=== PATIENT | female | born 1950 | race Caucasian/White ===

== ENCOUNTER 2016-11-09 11:23 | Emergency (ER) | payer MEDICARE, OTHER ==
[~2016-11-09] VITALS: Ht 165.1 cm; Wt 73.5 kg
[~2016-11-09 11:23] MED LIST: ASPIRIN EC81 MG PO; CALCIUM600 MG PO; DESMOPRESSIN A0.1 MG PO; DIFLUCAN200 MG PO; ESTRADIOL1 MG PO; HYDROXYZINE PAM25 MG PO; KEFLEX500 MG PO; LEVOTHYROXINE50 MCG PO; MECLIZINE HCL25 MG PO; METFORMIN HCL500 MG PO; METOPROLOL TART25 MG PO; NITROSTAT0.4 MG SL; OMEPRAZOLE20 MG PO; ONDANSETRON HCL4 MG PO; OXYBUTYNIN CHLOR5 MG PO; SIMVASTATIN80 MG PO; TRIAMCINOLONE A15 GM TOP; VITAMIN D2000 UNI1 PO; VITAMIN D250000 UNIT PO; ZYPREXA ZYDIS10 MG PO; ZYPREXA ZYDIS20 MG PO; ZYPREXA10 MG PO; ZYPREXA20 MG PO
[2016-11-09] MEDS ORDERED: CIPRO500 MG PO (13:50)
--- NOTE | 2016-11-09 21:00 | EKG ---
[facility] [address] [facility] [place] [address] Signed Normal sinus rhythm Normal ECG When compared with ECG of 02-NOV-2015 15:27, No significant change was found Confirmed by TEJA PAYTON MD ([id number]) on 11/09/2016 8:59:59 PM Electronically Signed By: TEJA PAYTON MD 11/09/16 2100 PATIENT NAME: HUNTER ZARAGOZA Electrocardiogram DATE OF : 52 PHYSICIAN: TEJA PAYTON MD REPORT #: [id number] REPORT IS CONFIDENTIAL AND NOT TO BE RELEASED WITHOUT AUTHORIZATION
== END 2016-11-09 14:03 | disposition home or self-care (01) ==
LOC: ED 11:23
DX: N39.0 Urinary tract infection, site not specified (principal); I48.91 Unspecified atrial fibrillation; Z88.2 Allergy status to sulfonamides; Z91.011 Allergy to milk products; Z88.5 Allergy status to narcotic agent; Z90.710 Acquired absence of both cervix and uterus; Z79.899 Other long term (current) drug therapy; Z90.89 Acquired absence of other organs; Z79.82 Long term (current) use of aspirin
CPT/HCPCS: 80053; 81001; 84484; 85025; 87077; 87088; 87186; 93005; 93010; 96360; 99284; J7030

== ENCOUNTER 2019-09-24 11:36 | Emergency (ER) | payer MEDICARE, OTHER ==
[~2019-09-24] VITALS: Ht 154.9 cm; Wt 73.5 kg
--- OUTSIDE RECORDS SUMMARY | ~2019-09-24 | XMS | Clinical Summary ---
Demographics + + + | Address | [address] | | | [place] [address] | + + + | Home Phone | | + + + | Preferred Language | Unknown | + + + | Marital Status | | + + + | Worship Affiliation | Unknown | + + + | Race | Unknown | + + + | Ethnic Group | Unknown | + + + Author + + + | Author | [facility] | | | and [place] | + + + | Organization | [facility] | | | and [place] | + + + | Address | Unknown | + + + | Phone | Unavailable | + + + Support + + +---------+ + | Name | Relationship | Address | Phone | + + +---------+ + | Aure Christian | ECON | Unknown | | + + +---------+ + Care Team Providers + +------+ + | Care Ski Patrol Officer Name | Role | Phone | + +------+ + | Augustine Zhang DO | PCP | | + +------+ + Allergies + + + + + + | Active Allergy | Reactions | Severity | Noted | Comments | | | | | Date | | + + + + + + | Codeine | Hives | High | 10//20 | | | | | | 16 | | + + + + + + | Sulfa Antibiotics | Hives | High | 12/06/19 | | | | | | 16 | | + + + + + + Medications + + + +---------+------+------+-------+ | Medication | Sig | Dispensed | Refills | Star | End | Statu | | | | | | t | Date | s | | | | | | Date | | | + + + +---------+------+------+-------+ | Cholecalciferol | Take by mouth | | 0 | 10/2 | | Activ | | (VITAMIN D-3) 12270 | daily. | | | 06/30 | | e | | units CAPS | | | | 16 | | | + + + +---------+------+------+-------+ | simvastatin | Take 80 mg by mouth | | 0 | 10/2 | | Activ | | (ZOCOR) 80 mg tablet | nightly. | | | /20 | | e | | | | | | 16 | | | + + + +---------+------+------+-------+ | estradiol | Take 1 mg by mouth | | 0 | 10/2 | | Activ | | (ESTRACE) 1 mg | daily. | | | 5/20 | | e | | tablet | | | | 16 | | | + + + +---------+------+------+-------+ | pioglitazone | Take 15 mg by mouth | | 0 | 10/2 | | Activ | | (ACTOS) 15 mg tablet | daily. | | | 5/20 | | e | | | | | | 16 | | | + + + +---------+------+------+-------+ | metFORMIN | Take 500 mg by mouth | | 0 | 10/2 | | Activ | | (GLUCOPHAGE) 500 mg | 2 (two) times daily | | | 5/20 | | e | | tablet | with meals. | | | 16 | | | + + + +---------+------+------+-------+ | aspirin 81 MG | Take 81 mg by mouth | | 0 | 10/2 | | Activ | | tablet | daily. | | | /20 | | e | | | | | | 16 | | | + + + +---------+------+------+-------+ | desmopressin | by Nasal route 2 | | 0 | 10/2 | | Activ | | (STIMATE) 150 | (two) times daily. | | | 20 | | e | | mcg/nasal spray SOLN | | | | 16 | | | + + + +---------+------+------+-------+ | OLANZapine | Take 30 mg by mouth | | 0 | 10/2 | | Activ | | (ZYPREXA) 10 MG | nightly. | | | /20 | | e | | tablet | | | | 16 | | | + + + +---------+------+------+-------+ | lisinopril | TAKE ONE TABLET BY | 90 | 2 | 10/12 | | Activ | | (PRINIVIL, ZESTRIL) | MOUTH EVERY DAY | tablet | | 03/02 | | e | | 5 mg tablet | | | | 17 | | | + + + +---------+------+------+-------+ | MANUAL SELECTION | Take 100 mg of | | 0 | / | | Activ | | NEEDED - | amoxicillin by mouth | | | 5/20 | | e | | Levothyroxine Sodium | daily. | | | 16 | | | | 100 MCG CAPS | | | | | | | + + + +---------+------+------+-------+ Active Problems + + + | Problem | Noted Date | + + + | Diabetes mellitus type 2, uncontrolled | 12/06/2015 | + + + | Hypertension, benign | 12/06/2015 | + + + Family History + + +------+ + | Medical History | Relation | Name | Comments | + + +------+ + | Cancer | Brother | | | + + +------+ + | Diabetes, NIDDM | Brother | | | + + +------+ + | Diabetes, NIDDM | Father | | | + + +------+ + | Heart disease | Father | | | + + +------+ + | Heart disease | Mother | | | + + +------+ + + +------+ + + | Relation | Name | Status | Comments | + +------+ + + | Brother | | | | + +------+ + + | Brother | | | | + +------+ + + | Father | | | CHF | | | | (Age | | | | | 69) | | + +------+ + + | Father | | | | + +------+ + + | Mother | | Alive | | + +------+ + + | Mother | | | | + +------+ + + Social History + +-------+ +--------+------+ | Tobacco Use | Types | Packs/Day | Years | Date | | | | | Used | | + +-------+ +--------+------+ | Former Smoker | | | | | + +-------+ +--------+------+ + + + | Sex Assigned at | Date Recorded | | | | + + + | Not on file | | + + + Last Filed Vital Signs + + + + + | Vital Sign | Reading | Time Taken | Comments | + + + + + | Blood Pressure | 116/64 | 01/03/2016 9:39 AM | | | | | PST | | + + + + + | Pulse | 79 | 01/03/2016 9:39 AM | | | | | PST | | + + + + + | Temperature | - | - | | + + + + + | Respiratory Rate | 16 | 01/03/2016 9:39 AM | | | | | PST | | + + + + + | Oxygen Saturation | - | - | | + + + + + | Inhaled Oxygen | - | - | | | Concentration | | | | + + + + + | Weight | 74 kg (163 lb 3.2 | 01/03/2016 9:39 AM | | | | oz) | PST | | + + + + + | Height | 154.9 cm (5' 1") | 01/03/2016 9:39 AM | | | | | PST | | + + + + + | Body Mass Index | 30.84 | 01/03/2016 9:39 AM | | | | | PST | | + + + + + Plan of Treatment + + +-------+ + | Health Maintenance | Due Date | Last | Comments | | | | Done | | + + +-------+ + | Vaccine: | | | | | Dtap/Tdap/Td (1 - | 1 | | | | Tdap) | | | | + + +-------+ + | Vaccine: Zoster (1 | | | | | of 2) | 2 | | | + + +-------+ + | Breast Cancer | | | | | Screening | 7 | | | + + +-------+ + | Vaccine: | | | | | Pneumococcal 65+ (1 | 7 | | | | of 1 - PPSV23) | | | | + + +-------+ + | Vaccine: Influenza | | | | | (#1) | 0 | | | + + +-------+ + Results Not on filefrom Last 3 Months
--- OUTSIDE RECORDS SUMMARY | ~2019-09-24 | XMS | Encounter Summary ---
Demographics + + + | Address | [address] | | | [place] [address] | + + + | Home Phone | | + + + | Preferred Language | Unknown | + + + | Marital Status | | + + + | Jew Affiliation | Unknown | + + + | Race | Unknown | + + + | Ethnic Group | Unknown | + + + Author + + + | Author | [facility] | | | and [place] | + + + | Organization | [facility] | | | [...] Team Providers + +------+ + | Care Braille Transcriber Name | Role | Phone | + [...] [place] | | | | | [place] | [address] | | | | | [address] | | | | | | [phone] | | | +--------+ + + + [...]
--- OUTSIDE RECORDS SUMMARY | ~2019-09-24 | XMS | Encounter Summary ---
Demographics + + + | Address | [address] | | | [place] [address] | + + + | Home Phone | | + + + | Preferred Language | Unknown | + + + | Marital Status | | + + + | Mormon Affiliation | Unknown | + + + | Race | Unknown | + + + | Ethnic Group | Unknown | + + + Author + + + | Author | [facility] | | | and [place] | + + + | Organization | [facility] | | | [...] Team Providers + +------+ + | Care Grounds Worker Name | Role | Phone | + [...] | | | | [place] | [phone] | | | | | [phone] | | | | | | [phone] | | | +--------+ + + + [...]
[~2019-09-24 11:36] MED LIST changes: +CIPRO500 MG PO
[2019-09-24] MEDS ORDERED: NAPROSYN500 MG PO (13:03)
[2019-09-24] MEDS ORDERED: LIDODERM1 EACH TOP (13:03)
--- NOTE | 2019-09-24 15:42 | EKG ---
[facility] [address] [facility] [place], [place] [address] Signed Normal sinus rhythm Normal ECG When compared with ECG of 13-JUN-2018 21:21, No significant change was found Confirmed by TEJA PAYTON MD ([id number]) on 09/24/2019 3:42:08 PM Electronically Signed By: TEJA PAYTON MD 09/24/19 1542 PATIENT NAME: HUNTER ZARAGOZA Electrocardiogram DATE OF : 52 PHYSICIAN: TEJA PAYTON MD REPORT #: [id number] REPORT IS CONFIDENTIAL AND NOT TO BE RELEASED WITHOUT AUTHORIZATION
== END 2019-09-24 13:18 | disposition home or self-care (01) ==
LOC: ED 11:36
DX: M94.0 Chondrocostal junction syndrome [Tietze] (principal); E11.9 Type 2 diabetes mellitus without complications; F31.9 Bipolar disorder, unspecified; I48.91 Unspecified atrial fibrillation; Z88.8 Allergy status to other drugs, medicaments and biological substances; Z88.2 Allergy status to sulfonamides; Z88.5 Allergy status to narcotic agent; Z91.011 Allergy to milk products; Z79.899 Other long term (current) drug therapy; Z79.84 Long term (current) use of oral hypoglycemic drugs
CPT/HCPCS: 71045; 80053; 84484; 85025; 93005; 93010; 96374; 99285-25; J1885

== ENCOUNTER 2019-11-06 09:59 | Inpatient (IN) | payer MEDICARE, OTHER ==
[~2019-11-06] VITALS: Ht 154.9 cm; Wt 73.5 kg
--- OUTSIDE RECORDS SUMMARY | ~2019-11-06 | XMS | Encounter Summary ---
Demographics + + + | Address | [address] | | | [place] [address] | + + + | Home Phone | | + + + | Preferred Language | Unknown | + + + | Marital Status | | + + + | Baptist Affiliation | Unknown | + + + | Race | White | + + + | Ethnic Group | Not or | + + + Author + + + | Author | [facility] | | | and [place] | + + + | Organization | [facility] | | | and [place] | + + + | Address | Unknown | + + + | Phone | Unavailable | + + + Support + + +---------+ + | Name | Relationship | Address | Phone | + + +---------+ + | Aure Gonzales | ECON | Unknown | | + + +---------+ + Care Team Providers + +------+ + | Care Comic Writer Name | Role | Phone | + +------+ + | Augustine Zhang DO | PCP | | + +------+ + Encounter Details +--------+ + + + + | Date | Type | Department | Care Team | Description | +--------+ + + + + | 12/05/ | Orders Only | [facility] | Conversion | | | 2016 | | CONVERSION DEP 888 | Transaction, | | | | | [facility] | Provider Unknown | | | | | [place] | [phone] | | | | | [address] | | | | | | [phone] | | | +--------+ + + + + Social History + +-------+ +--------+------+ | Tobacco Use | Types | Packs/Day | Years | Date | | | | | Used | | + +-------+ +--------+------+ | Never Assessed | | | | | + +-------+ +--------+------+ + + + | Sex Assigned at | Date Recorded | | | | + + + | Not on file | | + + + documented as of this encounter Plan of Treatment Not on filedocumented as of this encounter Visit Diagnoses Not on filedocumented in this encounter"
--- OUTSIDE RECORDS SUMMARY | ~2019-11-06 | XMS | Clinical Summary ---
Demographics + + + | Address | [address] | | | [place] [address] | + + + | Home Phone | | + + + | Preferred Language | Unknown | + + + | Marital Status | | + + + | Bahai Affiliation | Unknown | + + + | Race | White | + + + | Ethnic Group | Not or | + + + Author + + + | Author | [facility] | | | and [place] | + + + | Organization | [facility] | | | [...] Team Providers + +------+ + | Care Network Engineer Name | Role | Phone | + +------+ + | Augustine Zhang DO | PCP | | + +------+ + Allergies + + + + + + | Active Allergy | Reactions | Severity | Noted | Comments | | | | | Date | | + + + + + + | Codeine | Hives | High | 12/05/ | | | | | | 16 | | + + + + + + | Sulfa Antibiotics | Hives | High | 12/05/ | | | | | | 16 [...] | | Activ | | (VITAMIN D-3) 54590 | daily. | | | /20 | | e | | units CAPS | | | | 16 | | | + + + +---------+------+------+-------+ | simvastatin | Take 80 mg by mouth | | 0 | 10/2 | | Activ | | (ZOCOR) 80 mg tablet | nightly. | | | 5/20 | | e [...] | tablet | daily. | | | 5/20 | | e | | | | | | 16 | | | + + + +---------+------+------+-------+ | desmopressin | by Nasal route 2 | | 0 | 10/2 | | Activ | | (STIMATE) 150 | (two) times daily. | | | 5/20 | | e | | mcg/nasal spray SOLN | | | | 16 | | | + + + +---------+------+------+-------+ | OLANZapine | Take 30 mg by mouth | | 0 | 10/2 | | Activ | | (ZYPREXA) 10 MG | nightly. | | | 5/20 | | e | | tablet | | | | 16 | | | + + + +---------+------+------+-------+ | lisinopril | TAKE ONE TABLET BY | 90 | 2 | 10/12 | | Activ | | (PRINIVIL, ZESTRIL) | MOUTH EVERY DAY | tablet | | 20 | | e | | 5 mg tablet | | | | 17 | | | + + + +---------+------+------+-------+ | MANUAL SELECTION | Take 100 mg of | | 0 | 10/2 | | Activ | | NEEDED - [...]
--- OUTSIDE RECORDS SUMMARY | ~2019-11-06 | XMS | Encounter Summary ---
Demographics + + + | Address | [address] | | | [place] [address] | + + + | Home Phone | | + + + | Preferred Language | Unknown | + + + | Marital Status | | + + + | Episcopal Affiliation | Unknown | + + + | Race | White | + + + | Ethnic Group | Not or | + + + Author + + + | Author | [facility] | | | and [place] | + + + | Organization | [facility] | | | and [place] | + [...] Team Providers + +------+ + | Care Inside Sales Trainer Name | Role | Phone | + +------+ + | Augustine Zhang DO | PCP | | + +------+ + Encounter Details +--------+ + + + + | Date | Type | Department | Care Team | Description | +--------+ + + + + | 10/22/ | Orders Only | [facility] | Tari Caballero, | | | 2016 | | CARDIOLOGY [place] | [address] | | | | | [address] | [place] | | | | | [place], [place] | [address] | | | | | [address] | | | | | | [phone] | | | +--------+ + + + [...]
--- OUTSIDE RECORDS SUMMARY | ~2019-11-06 | XMS | Encounter Summary ---
Demographics + + + | Address | [address] | | | [place] [address] | + + + | Home Phone | | + + + | Preferred Language | Unknown | + + + | Marital Status | | + + + | Pentecostal Affiliation | Unknown | + + + | Race | White | + + + | Ethnic Group | Not or | + + + Author + + + | Author | [facility] | | | and [place] | + + + | Organization | [facility] | | | [...] Team Providers + +------+ + | Care Medical Insurance Clerk Name | Role | Phone | + +------+ + | Augustine Zhang DO | PCP | | + +------+ + Encounter Details +--------+ + + + + | Date | Type | Department | Care Team | Description | +--------+ + + + + | 10/22/ | Orders Only | [facility] | Tari Caballero, | | | 2016 | | CARDIOLOGY [place] | [address] | | | | | [address] | [place] | | | | | [place], [place] | [address] | | | | | [address] | | | | | | [phone] | | | +--------+ + + + [...]
--- OUTSIDE RECORDS SUMMARY | ~2019-11-06 | XMS | Encounter Summary ---
Demographics + + + | Address | [address] | | | [place] [address] | + + + | Home Phone | | + + + | Preferred Language | Unknown | + + + | Marital Status | | + + + | Sikh Affiliation | Unknown | + + + | Race | White | + + + | Ethnic Group | Not or | + + + Author + + + | Author | [facility] | | | and [place] | + + + | Organization | [facility] | | | and [...] Team Providers + +------+ + | Care Structurer Name | Role | Phone | + [...] | | | | [place] | [phone] | | | | | [phone] | | | | | | [phone] | | | +--------+ + + + [...]
--- OUTSIDE RECORDS SUMMARY | ~2019-11-06 | XMS | Clinical Summary ---
Demographics + + + | Address | [address] | | | [place] [address] | + + + | Home Phone | | + + + | Preferred Language | Unknown | + + + | Marital Status | | + + + | Mu-Ism Affiliation | Unknown | + + + | Race | White | + + + | Ethnic Group | Not or | + + + Author + + + | Author | [facility] | | | and [place] | + + + | Organization | [facility] | | [...] Team Providers + +------+ + | Care Conduit Helper Name | Role | Phone | + [...] | | Activ | | (VITAMIN D-3) 21549 | daily. | | | /20 | [...]
[~2019-11-06 09:59] MED LIST changes: +LIDODERM1 EACH TOP; +NAPROSYN500 MG PO; -ONDANSETRON HCL4 MG PO; +PRAVACHOL40 MG PO; -SIMVASTATIN80 MG PO; +VITAMIN D350 MC3 PO
[2019-11-06] MEDS ORDERED: TRULICITY1.5 MG/0.5 SUB-Q (11:10)
--- NOTE | 2019-11-06 15:12 | NUR ---
COVID SAMPLE OBTAINED, SENT TO [facility] , NO COMPLICATIONS
--- NOTE | 2019-11-06 15:21 | NUR ---
Arrives from ED via cart with KELLY Jerome. Ambulates from cart to bed. Assessment completed. States pain 8/10 in abdomen. States she is having diarrhea stools. Vital signs obtained. Call light in reach, bed rails up X2.
[2019-11-06] MEDS ORDERED: TRIFLURIDINE7.5 ML OS (17:29)
[2019-11-06] MEDS ORDERED: VENTOLIN HFA18 GM INH (17:30)
[2019-11-06] MEDS ORDERED: SYNTHROID75 MCG PO (17:31)
[2019-11-06] MEDS ORDERED: JANUVIA100 MG PO (17:32)
[2019-11-06] MEDS ORDERED: ZESTRIL5 MG PO (17:33)
[2019-11-06] MEDS ORDERED: MYRBETRIQ50 MG PO (17:34)
--- NOTE | 2019-11-06 17:43 | NUR ---
Patient admitted from ED this afternoon. IV fluids infusing. Continues with diarrhea since admission with periods of incontinence. No nausea or vomiting noted. IV site rotated per patient request to decrease IV pump alarms. Up ad garcia, independent in room.
[2019-11-06] MEDS ORDERED: METFORMIN HCL500 M3 PO (17:57)
[2019-11-06] MEDS ORDERED: VITAMIN C500 M1 PO (17:58)
[2019-11-06] MEDS ORDERED: MULTI VITAMIN1 EACH PO (17:58)
[2019-11-06] MEDS ORDERED: ONDANSETRON HCL4 MG PO (17:58)
[2019-11-06] MEDS ORDERED: IRON325 M1 PO (17:59)
--- NOTE | 2019-11-06 17:59 | NUR ---
MED REC COMPLETE
--- NOTE | 2019-11-06 19:23 | NUR ---
SHIFT REPORT RECEIVED FROM JESSICA MENDOZA. PT RESTING IN BED, WATCHING TV. PT DENIES PAIN. IV FLUIDS INFUSING PER ORDER. NO NEEDS AT THIS TIME. CALL LIGHT IN REACH.
--- NOTE | 2019-11-06 20:36 | NUR ---
SCHEDULED MED PROVIDED. NO OTHER NEEDS. CALL LIGHT IN REACH.
--- NOTE | 2019-11-06 21:10 | NUR ---
SUPERVISOR SLITTING AND SHIPPING ROUNDING NOTE. PT UTILIZES CALL LIGHT. STANDING AT BEDSIDE, INQUIRES ABOUT UNPLUGGING IV POLE TO GO TO THE BATHROOM. PT PROVIDED ASSITANCE. DENIES FURTHER NEEDS AT THIS TIME. PT AGREES TO CALL WHEN SHE IS FINISHED IN THE BATHROOM. DENIES QUESTIONS OR CONCERNS. WHITE BOARD UPDATED.
--- NOTE | 2019-11-06 21:15 | NUR ---
TOOK VITALS AND I&Os DONE, FRESH ICE WATER GIVEN, CALL LIGHT IN PLACE, HELPED PT ADJ HOB, NO FURTHER NEEDS AT THIS TIME, RN WILL BE IN SHORTY FOR PM MEDS
--- NOTE | 2019-11-06 22:07 | NUR ---
ASSESSMENT COMPLETED. SCHEDULED MEDS PROVIDED. GCS 15, A&O X4. IV WNL, CDI, FLUSHED WELL. LUNGS CLEAR. ABD SOFT, TENDER ON LEFT SIDE, PT DENIES DISTENTION. PT DENIES PAIN AT THIS TIME. CMS INTACT X4 EXTREMITIES. NO EDEMA NOTED. BOWEL TONES ACTIVE. NO CBG NEEDED. HEART TONES REGULAR. NO OTHER NEEDS AT THIS TIME. CALL LIGHT IN REACH.
--- NOTE | 2019-11-06 23:45 | NUR ---
SBA PT TO THE TOILET, HELPED MOVE IV POLE, PT IS BK TO BED AT THIS TIME, CALL LIGHT IN REACH, NO FURTHER REQUEST AT THIS TIME
--- NOTE | 2019-11-07 00:01 | NUR ---
PT RESTING IN BED, EYES CLOSED. RR EVEN, UNLABORED. IV FLUIDS AND MED INFUSING PER ORDER. CALL LIGHT IN REACH.
--- NOTE | 2019-11-07 01:25 | NUR ---
CALL LIGHT ANSWERED. PATIENT NEEDS HELP UNTANGLED IV TUBING AND IV PLUG CORD. PATIENT JUST GOT BACK FROM BATHROOM. V/S AND I&O TAKEN AND RECORDED. PRIMARY RN WAS IN THE ROOM. WARM BLANKET PROVIDED.
--- NOTE | 2019-11-07 01:34 | NUR ---
VS AND I&O [facility]. SCHEDULED MEDS AND NEW BAG IV FLUID PROVIDED. WARM BLANKET PROVIDED BY [facility]. NO OTHER NEEDS. CALL LIGHT IN REACH.
--- NOTE | 2019-11-07 03:18 | NUR ---
PT STATES SHE HAS 7/10 LLQ PAIN, PRN PAIN MED PROVIDED. ASSESSMENT COMPLETED. GCS 15, A&O X4. LUNGS CLEAR. HEART TONES REGULAR. ABD SOFT, TENDER IN LLQ, BOWEL TONES ACTIVE. PT DENIES ABD BEING DISTENDED. CMS INTACT. NO EDEMA NOTED. PT DENIES NAUSEA. IV WNL, IV FLUIDS INFUSING PER ORDER. NO OTHER NEEDS AT THIS TIME. CALL LIGHT IN REACH.
--- NOTE | 2019-11-07 06:13 | NUR ---
VS AND I&O COMPLETED. SCHEDULED MED PROVIDED. PT DENIES PAIN. NO OTHER NEEDS AT THIS TIME. CALL LIGHT IN REACH.
--- NOTE | 2019-11-07 06:26 | NUR ---
PT SLEPT WELL LAST NIGHT. ABD PAIN MANAGED WITH PRN MEDS. PT TOLERATED IV AND IV FLUIDS WELL. IV WNL. CBG 139, NO COVERAGE REQUIRED. VSS, UOS. PT TOLERATED CLEAR LIQUID DIET WELL.
--- NOTE | 2019-11-07 07:35 | NUR ---
REPORT RECIEVED FROM LOAD MANAGER KELLY KAUFMAN.
--- NOTE | 2019-11-07 08:41 | NUR ---
MORNING ASSESSMENT DONE. IV ABX INFUSING. PATIENT IS SLEEPY, RATES PAIN 6/10 WHEN AWAKE AND THEN IMMEDIATELY FALLS ASLEEP. DR. KO IN TO SEE PATIENT EARLIER THIS MORNING, PATIENT TO HAVE STOOL LABS, START P.O. PROTONIX. PATIENT IS TOLERATING CLEAR LIQUID DIET WELL.
--- NOTE | 2019-11-07 11:11 | NUR ---
PATIENT IS RESTING IN BED, IV CEFAPIME INFUSING.
--- NOTE | 2019-11-07 13:12 | NUR ---
PATIENT UP TO BATHROOM TO VOID/BM, LOOSE STOOL SENT TO LAB. PATIENT LINENS FRESHENED. PATIENT REFUSED TO SIT UP TO CHAIR AND WENT BACK TO BED. PATIENT DENIES PAIN, OR NAUSEA, IS TOLERATING A FULL LIQUID DIET WELL.
--- NOTE | 2019-11-07 14:22 | NUR ---
PATIENT PLANNING TO HAVE A SHOWER THIS AFTERNOON, DENIES OTHER NEEDS.
--- NOTE | 2019-11-07 15:15 | PATH ---
[facility] [address] [facility] [place], [place] [address] Signed ORDERING PHYSICIAN: Terri Neely MD PATIENT NAME: HUNETR ZARAGOZA GENDER: [place]ley : 1950 SPECIMEN(S): MOLECULAR PATHOLOGY RESULTS: SARS-CoV-2 Not Detected ADDITIONAL NOTES.: The Seco Fusion SARS-CoV-2 Assay is a multiplex real-time PCR (RT-PCR) in vitro diagnostic test intended for the qualitative detection of RNA from SARS-CoV-2 from individuals who meet COVID-19 clinical and/or epidemiological criteria. In general, SARS-CoV-2 RNA can be detected during the acute phase of infection. Positive results indicate the presence of SARS-CoV-2 RNA. Clinical correlation with patient history and other diagnostic information is necessary to determine patient infection status. Positive results do not rule out bacterial infection or co-infection with other viruses. Negative results do not preclude SARS-CoV-2 infection and should not be used as the sole basis for patient management decisions. Negative results must be combined with other clinical observations, patient history, and epidemiological information. The Seco Fusion SARS-CoV-2 Assay is not yet approved or cleared by the [place] FDA. When there are no FDA-approved or cleared tests available, and other criteria are met, FDA can make tests available under an emergency access mechanism called an Emergency Use Authorization (EUA). The EUA for this test is supported by the [employer] of Health and Human Service's (HHS's) declaration that circumstances exist to justify the emergency use of in vitro diagnostics for the detection and/or diagnosis of the virus that causes COVID-19. This EUA will remain in effect for the duration of the COVID-19 declaration justifying emergency of IVDs, unless it is terminated or revoked by FDA, after which the test may no longer be used. The Seco Fusion SARS-CoV-2 Assay is for use only under EUA in US laboratories certified under the Clinical Laboratory Improvement Amendments of 1988 (CLIA) to perform high complexity tests. [facility] is certified under CLIA to perform high complexity PATIENT NAME: HUNTER ZARAGOZA PATHOLOGY DATE OF : 52 REPORT #: [id number] PHYSICIAN: LEI PATHOLOGY PCP: JEANIE HUERTA MD REPORT IS CONFIDENTIAL AND NOT TO BE RELEASED WITHOUT AUTHORIZATION [address] [address] Signed clinical laboratory testing. PERFORMING LABORATORY.: Molecular testing was performed by [facility] [address] [place] [id number] (Christmas Tree Grader: Luis James D.O.; CLIA#: [id number]) Diagnostician: System Interface Pathologist Electronically Signed 11/07/2019 Copies: ~ PATIENT NAME: HUNTER ZARAGOZA PATHOLOGY DATE OF : 52 REPORT #: [id number] PHYSICIAN: LEI BRANHAM PCP: JEANIE HUERTA MD REPORT IS CONFIDENTIAL AND NOT TO BE RELEASED WITHOUT AUTHORIZATION
--- NOTE | 2019-11-07 15:49 | NUR ---
PATIENT RESTING IN BED AFTER SHOWER, IVF/ABX RESUMED. PATIENT IS TOLERATING FULL LIQUID WELL, NO NAUSEA OR PAIN AT THIS TIME.
--- NOTE | 2019-11-07 17:09 | NUR ---
PATIENT HAS DONE WELL WITH ADVANCING HER DIET TODAY, AD KAMRON FOR THE MOST PART AND RESTING IN BED. STOOL LABS ARE PENDING. PATIENT RATES PAIN 4-5/10, AFFECT DOES NOT MATCH NUMBER RATING. 4-5/10 ON THE FACES SCALE, 7-8/10 PER PATIENT.
--- NOTE | 2019-11-07 18:44 | NUR ---
PATIENT RESTING IN BED, ENDORSES SEVERAL EPISODES OF LOOSE STOOL TODAY, THESE WERE ADDED TO I/O
--- NOTE | 2019-11-07 21:00 | NUR ---
PATIENT TOOK ALL PM MEDS, NOT WANTING ANYTHINNG FOR ANY DISCOMFORT. CALL LIGHT IN REACH. NEW ICE WATER GIVE. PATIENT VOIDING WELL.
--- NOTE | 2019-11-07 21:54 | NUR ---
PATIENT RESTING QUIETLY ON HER LEFT SIDE, EYES CLOSED, RESPIRATIONS REGULAR AND EVEN, CALL LIGHT IN REACH.
--- NOTE | 2019-11-08 00:07 | NUR ---
PATIENT JUST GOT BACK TO THE BED FROM THE BAHROOM WITH 1PSBA. VOIDED 800MLS AND HAD A MEDIUM AMOUNT OF DIARRHEA. GOING BACK TO SLEEP CAN CALL LIGHT IN REACH.
--- NOTE | 2019-11-08 02:13 | NUR ---
PATIENT UP TO VOID 1PSBA AND BACK TO BED, CALL LIGHT IN REACH AND NEW ICEWATER GIVEN. NO C/O PAIN.
--- NOTE | 2019-11-08 05:36 | NUR ---
PATIENT HAS SLEPT, WHEN SHE HAS NOT BEEN UP TO THE BATHROOM TO PEE OR HAVE DIARRHEA OR BOTH. PATIENT IS VOIDING VERY WELL. HAS NOTHING FOR PAIN, IV INFUSING AND WNL. CALL LIGHT IN REACH. PATIENT HAS BEEN PLEASANT AND HAS CALLED APPROPRIATELY. BOWEL TONES HYPO ACTIVE AND AM MEDS HAVE BEEN GIVEN.
--- NOTE | 2019-11-08 07:05 | NUR ---
Entered pt room for bedside report. Pt was laying on bed with eyes closed, breathing even and unlabored. Report continued at doorway. Took shift report from Nikolai MENDOZA. According to report the pt had dark brown diarrhea throughout the evening, and had an otherwise unevenful evening, all VSS throughout evening shift. Pt left as she was to continue with shift change reports.
--- NOTE | 2019-11-08 08:45 | NUR ---
Entered pt room for morning med pass and assessment. Pt lying in bed, side rails up, call light beside her. Pt alert, oriented x3, and pleasant upon greeting. Pt able to take med without difficulty. IV ABX started per orders and protocol. Pt assessment done, VSS, see charting. Pt up to bathroom, independently, SBA. Pt voided 400mls in toilet/hat. Urine clear light yellow. Pt reports 6/10 pain, and tolerable (denies need for pain meds). Pt finished her full liquids breakfast tray. Pt reports no nausea at present. Pt would like o stay in bed (no up to chair) due to poor sleep last night and "hoping to rest a little more". Pt anticipating shower later today. Pt reports no further needs at this time. Pt left lying in bed, table and call light within reach.
--- NOTE | 2019-11-08 09:29 | NUR ---
Entered pt room to round and check on ABX infusion. First ABX complete. Pt reports no needs at this tme. Will return with secon ABX of the day. Pt left lying in bed, call russell santos MD present at bedside.
--- NOTE | 2019-11-08 09:48 | NUR ---
Entered pt room to start second IV infusion. Pts infusion started per orders and protocols. Pt reports no further needs at this time. Pt left lying in bed, table and call light within reach.
--- NOTE | 2019-11-08 09:53 | NUR ---
PATIENT IN BED RESTING. CALL LIGHT IN REACH. NO FURTHER NEEDS AT THIS TIME.
--- NOTE | 2019-11-08 10:35 | NUR ---
Entered pt room for rounding. Pt lying in bed, eyes closed, opening upon my entry. Pt reports no needs, nausea, or pain at this time. Pts IV SBX going as ordered. Pts table and call light within reach.
--- NOTE | 2019-11-08 11:08 | NUR ---
PATIENT UP TO SHOWER AND BACK TO BED, SBA. PATIENT IND IN SHOWER. LINENS CHANGED. NEW GOWN PROVIDED. CALL LIGHT IN REACH. NO FURTHER NEEDS AT THIS TIME.
--- NOTE | 2019-11-08 11:15 | NUR ---
Entered pt room o address IV pump alarm. Distal occlusion corrected and IV infusion restarted. IV ABX infusing as ordered. Pt had just finished her shower and was feeling much better after it. Pt reports no pain and nausea. Pt reports no further needs at this time. MD Barron just in. Pt left lying in bed, HOB elevated about 45 degrees. Side rails up, side table and call light within reach.
--- NOTE | 2019-11-08 11:39 | NUR ---
In room to help pt with her IV pole to the bathroom. Pt had gotten up and tried to walk to hallway to get my attention. When I reminded her of the call light, she said she "knew, but had the diarrhea urgency and panicked". Pt up to bathroom. Pts lunch had arrived, but wants to order soft food tray since MD told her verbally that she could when he was was in recently. Pts glucose to be checked before lunch. Pt returned to bed, IV plugged in. Pt in bed, side rails up, call light and table within reach.
--- NOTE | 2019-11-08 11:50 | NUR ---
In to check blood glucose, was 134, no insulin needed according to sliding scale orders. Pt recieved her soft foods tray and reports no further needs at this time. Pt was left sitting up in bed, food tray on table over her lap, side rails up, call light within reach.
--- NOTE | 2019-11-08 13:00 | NUR ---
Entered pt room for rounding. Pt was lying in bed, eyes closed, breathing even and unlabored. Pt left this way, side table and call light within reach.
--- NOTE | 2019-11-08 13:54 | NUR ---
Entered room for rounding. Pt lying in bed, breathing even and unlabored, side table and call light within reach. Did not wake pt to assess for pain and nausea at this time since pt had mentioned to me this morning how much she wished she could rest since she had not slept well last night (due to being up several times with diarrhea).
--- NOTE | 2019-11-08 14:08 | NUR ---
Entered pt room for afternoon assessment and ABX admin. Pt was alert and oriented x3. Pt assisted to the bathroom, pt independent, SBA. Assessment complete, see charting, VSS. Pt returned to bed, sitting up. Pt reports no pain or nausea at this time. Pt had 2/4 side rails up, bed in lowest position, table and call light within reach.
--- NOTE | 2019-11-08 14:42 | NUR ---
In room responding to call light. Pts IV pump was alarming. IV pump was kinked- corrected the kink and restarted the infusion as ordered. Pt reports no further needs at this time. Pt left sitting up in bed, table and call light within reach.
--- NOTE | 2019-11-08 15:15 | NUR ---
In room responding to call light. Pt up to the bathroom. Assisted pt back to bed, brought two warm blankets to pt for comfort. Pt ABX infusion finished. IVF started per orders. Pt reports no pain or nausea at this time. Pt left lying in bed, on her right side, bed in lowest position, table and call light within reach.
--- NOTE | 2019-11-08 17:10 | NUR ---
In room for pts evening med pass and glucose checks. Pts tray arrived and pts glucose was 106, so no insulin was given per sliding scale orders. Pt was able to take med without difficulty. Pts vitals and I's&O's were recorded, VSS. Pt reports no pain or nausea at this time. Pt left sitting up in bed, bed in lowest position, side rails up, dinner table over her legs, call light within reach.
--- NOTE | 2019-11-08 17:41 | NUR ---
Pt admitted on 11-06-19 for diverticulitis. Pt has needed no insulin injections today due to glucose checks remaining under sliding scale orders. Pts VSS throughout the shift, and physical assessment is all WNL with the exception of her slight abdominal discomfort at times and her diarrhea. Pt was moved from a Clear Liquids diet to a Soft Foods diet this afternoon, and has tolerated it well so far, her last BM was soft but somewhat formed, which is improved. Pts C-Dif lab returned Negative. Pts H&H is still low, as with anemia secondary to her dx. Pt was able to shower today. Pt made a few remarks about "turning off" her own IV pump so it wouldn't alarm, so the pump was Locked Out to prevent her from being able to alter the infusions in any way. Pt has remained alert and oriented x3 throughout the shift, has had minimal pain (no pain meds given), and is voiding quantity sufficient. Pt is anticipating DC tomorrow, though that has not been clarified by me or MD.
--- NOTE | 2019-11-08 18:16 | NUR ---
In pts room to assist her back to bed and plug in her IV. Removed dinner tray, updated I's&O's, and got her settled in bed. Gave her more ice, barrier cream, and briefs as requested. Pt reports no further needs at this time. Pt left sitting up in bed, table and call light within reach.
--- NOTE | 2019-11-08 19:10 | NUR ---
REPORT RECEIVED FROM DAY SHIFT RN. PT LYING ON RIGHT SIDE WITH EYES CLOSED, NAD. IVF INFUSING. WHITE BOARD UPDATED. CALL LIGHT IN REACH.
--- NOTE | 2019-11-08 20:31 | NUR ---
PT ALERT AND ORIENTED. DENIES PAIN OR NAUSEA, REPORTS FEELING "TIRED TONIGHT". BLOOD GLUCOSE WITHIN DESIRED RANAGE, WILL HOLD SLIDING SCALE INSULIN. IV ABX INFUSING. NO NEEDS AT THIS TIME.
--- NOTE | 2019-11-08 21:51 | NUR ---
EVENING ASSESSMENT COMPLETE. SCHEDULED MEDS ADMINISTERED PER EMAR. IV ABX INFUSING. PT TO BR TO VOID INDEPENDENTLY, BACK TO BED. LUISA WELL. PT REPORTS NO DIARRHEA THIS EVENING. DENIES PAIN OR NAUSEA. BOWEL TONES ACTIVE. FRESH LIQUIDS AND WARM BLANKET PROVIDED. PT DENIES FURTHER NEEDS. CALL LIGHT WITHIN REACH.
--- NOTE | 2019-11-08 22:58 | NUR ---
PIV IN LEFT FOREARM INFILTRATED, DC'D WNL. TIP INTACT. NEW PIV PLACED IN UPPER LEFT FOREARM WITH ONE ATTEMPT. PT LUISA WELL. IVF AND IV ABX INFUSING AT THIS TIME.
--- NOTE | 2019-11-09 01:48 | NUR ---
PT RESTING IN BED WITH EYES CLOSED, NAD. NEW BAG IVF HUNG. IV ABX INFUSING PER EMAR.
--- NOTE | 2019-11-09 02:41 | NUR ---
CALL LIGHT ANSWERED. PT SPILLED WATER AT BEDSIDE. CLEANED FLOOR. CLEAN SOCKS PROVIDED. UP TO BR TO VOID. GAIT STEADY. BACK TO BED, LUISA WELL. ASSESSMENT COMPLETE.
--- NOTE | 2019-11-09 04:35 | NUR ---
PT RESTING IN BED WITH EYES CLOSED, NAD.
--- NOTE | 2019-11-09 06:34 | NUR ---
SCHEDULED MEDS ADMINISTERED PER EMAR. PT DENIES PAIN OR NAUSEA. NO DIARRHEA THIS SHIFT. IVF INFUSING. VSS. AFEBRILE. I&O COMPLETE. NO FURTHER NEEDS. CALL LIGHT IN REACH.
[2019-11-09] MEDS ORDERED: LEVOFLOXACIN500 MG PO (07:38)
[2019-11-09] MEDS ORDERED: FLAGYL500 MG PO (07:39)
--- NOTE | 2019-11-09 08:00 | NUR ---
PATIENT AWAKE BUT DROWSY IN BED. BLOOD SUGAR CHECKED AND INSULIN HELD FOR BG 130 PER MD ORDERED SLIDING SCALE. PATIENT ASSESSMENT COMPLETE. VITAL SIGNS STABLE. PATIENT UP TO VOID, AMBULATES WELL WITHOUT ASSISTANCE. PATIENT DENIES PAIN OR DISCOMFORT. PATIENT STATES SHE WOULD LIKE TO SHOWER. IV DC'D. PATIENT TO SHOWER. PATIENT AWARE OF AND AGREEABLE TO DISCHARGE PLAN THIS AM. EDUCATED ON LOW FIBER DIET.
--- NOTE | 2019-11-09 09:19 | NUR ---
DISCHARGE INSTRUCTIONS GIVEN. PATIENT ANXIOUS ABOUT MAKING HER SISTER UPSET ABOUT WAITING ON HER. PATIENT DISCHARGED VIA WHEELCHAIR BY THIS RN. PATIENT BELONGINGS GIVEN TO HER. NO FURTHER REQUESTS OR QUESTIONS.
--- NOTE | 2019-11-10 07:48 | DS ---
[facility] [address], [place] [address] Signed ADMISSION DATE: 11/06/2019 DISCHARGE DATE: 11/09/2019 FINAL DIAGNOSIS: Descending colon diverticulitis. PROCEDURES: None. HISTORY OF PRESENT ILLNESS: Bridgett is a 69-year-old female, who is known for many years. She is actually scheduled for a colonoscopy in November of this year; however, she developed diarrhea and left mid quadrant abdominal pain. She came to the emergency room for evaluation. Her white count was normal, but the CT scan did show some mild diverticulitis in her descending colon; however, she had told the ER physician she was having trouble with nausea, vomiting, and inability to keep anything down. Consequently, I have been asked to admit her as a general surgeon on-call. HOSPITAL COURSE: Bridgett was admitted as above, and received an initial dose of Zosyn. She then went on cefepime and Flagyl while here in the hospital. She has done exceptionally well, and her white count is continued to go down and stay in the normal range. She has had some diarrhea, so we went and check stool studies, and so far they have all been negative including the C diff toxin, Giardia, antigen, ova and parasites, white blood cells stool culture still pending. We did have the Internal Medicine Service see her for the blood sugars and so forth. She has done well in that regard. On exam today, she does not appear to have any significant left mid quadrant abdominal pain. She said she is feeling much better. DISCHARGE PLANS AND MEDICATIONS: Bridgett is going to be discharged home with a prescription for Levaquin 500 mg one tablet p.o. daily for four days. She will be given Flagyl 500 mg one tablet p.o. t.i.d. for four days, in that way she will have a total of seven days of antibiotics. She can resume all her chronic medications at home as she is done here in the hospital. She can follow her usual diet at home. She can shower and bathe as usual and perform her activities of daily living. We are going to keep her scheduled for her colonoscopy later this month. Electronically Signed By: MARJ KO MD 11/10/19 0748 PATIENT NAME: BRIDGETT ZARAGOZA DISCHARGE SUMMARY DATE OF : 52 REPORT #: [id number] PHYSICIAN: MARJ KO MD PCP: JEANIE HUERTA MD REPORT IS CONFIDENTIAL AND NOT TO BE RELEASED WITHOUT AUTHORIZATION [facility] [address] [place] [id number] Signed Marj Ko MD ALB/MODL /[id number] cc: MD Marj Feliciano MD Copies: MARJ KO MD ~ Electronically Signed By: MARJ KO MD 11/10/19 0748 PATIENT NAME: BRIDGETT ZARAGOZA DISCHARGE SUMMARY DATE OF : 52 REPORT #: [id number] PHYSICIAN: MARJ KO MD PCP: JEANIE HUERTA MD REPORT IS CONFIDENTIAL AND NOT TO BE RELEASED WITHOUT AUTHORIZATION
== END 2019-11-09 09:30 | disposition home or self-care (01) | DRG 392 ==
LOC: ED 09:59 → MS 14:52
PROVIDERS: ADMIT Colon & Rectal Surgery; ATTEND Colon & Rectal Surgery
DX: K57.32 Diverticulitis of large intestine without perforation or abscess without bleeding (principal); F20.0 Paranoid schizophrenia; Z20.828 Contact with and (suspected) exposure to other viral communicable diseases; D69.6 Thrombocytopenia, unspecified; E11.9 Type 2 diabetes mellitus without complications; E78.5 Hyperlipidemia, unspecified; E55.9 Vitamin D deficiency, unspecified; Z79.899 Other long term (current) drug therapy; Z79.84 Long term (current) use of oral hypoglycemic drugs; Z88.5 Allergy status to narcotic agent; Z88.2 Allergy status to sulfonamides; Z88.8 Allergy status to other drugs, medicaments and biological substances
CPT/HCPCS: 36415; 74177; 80048; 80053; 81001; 83036; 83735; 84100; 85025; 87046; 87177; 87209; 87329; 87493; 96361; 96365; 99285-25; C9113; J0692; J1650; J1815; J2543; J3475; J7030; J7121; Q9967

== ENCOUNTER 2019-12-08 09:03 | Day surgery (SDC) | payer MEDICARE, OTHER ==
[~2019-12-08] VITALS: Ht 152.4 cm; Wt 73.6 kg
[~2019-12-08 09:03] MED LIST changes: +FLAGYL500 MG PO; +IRON325 M1 PO; +JANUVIA100 MG PO; +LEVOFLOXACIN500 MG PO; +METFORMIN HCL500 M3 PO; +MULTI VITAMIN1 EACH PO; +MYRBETRIQ50 MG PO; +OCUFLOX5 ML OPTH; +ONDANSETRON HCL4 MG PO; +SYNTHROID75 MCG PO; +TRIFLURIDINE7.5 ML OS; +TRULICITY1.5 MG/0.5 SUB-Q; +VENTOLIN HFA18 GM INH; +VITAMIN C500 M1 PO; +ZESTRIL5 MG PO
--- NOTE | 2019-12-08 11:33 | NUR ---
12/08/19 1133 Amina Cardoso 1127- PT TO PACU IN LL POSITION EYES CLOSED. RESPONDS TO VERBAL AND TACTILE STIMULI. BREATHING EASY AND UNLABORED. SPO2 >95% ON 3 L O2 VIA NC. PT ENCOURAGED TO TAKE DEEP BREATHS AND PASS GAS. PT FALLS BACK TO SLEEP WHEN NOT PROMPTED BY RN.
--- NOTE | 2019-12-09 06:29 | OR ---
[facility] [address] [place], [place] [address] Signed DATE OF OPERATION: 12/08/2019 SURGEON: Marj Ko MD PROCEDURE: Colonoscopy. PREOPERATIVE DIAGNOSES: 1. History of hyperplastic colorectal polyps in 2010. 2. Internal hemorrhoids. 3. Sister with a history of colonic polyps. 4. Pandiverticulosis. POSTOPERATIVE DIAGNOSES: 1. Polyps left colon 4 mm, hepatic flexure 4 mm, mid transverse colon 4 mm, splenic flexure 5 mm, 80 cm 4 mm, 65 cm 4 mm, 32 cm 5 mm x3 and 4 cm x2 7 mm. 2. Moderate internal hemorrhoids. 3. Pandiverticulosis. PROCEDURES: Colonoscopy, snare polypectomy at 4 cm and hot biopsies. ESTIMATED BLOOD LOSS: None. INDICATIONS: Bridgett is a 69-year-old female, asked to see me for a followup colonoscopy. She has had some rather large hyperplastic polyps out back in 2010. The most concerning appeared to be in the proximal transverse colon. We had to go back and take the remainder of that polyp about a month later. On this occasion, it looks like she has a tattoo actually near the splenic flexure rather than the hepatic flexure. She is known to have internal hemorrhoids and pandiverticulosis as well. Her sisters had colonic polyps removed. She then had a repeat colonoscopy in 2013 and 3 small hyperplastic polyps had been removed. She has always done well with Versed and fentanyl. She has no lower GI complaints. She returns for a followup colonoscopy. In the office, I gave her a pamphlet on colonoscopy. We looked at that together along with the risks including, but not limited to gas bloating, crampy abdominal pain, bleeding, perforation requiring surgery, and missed diagnosis. She had expressed understanding and wished to proceed. PROCEDURE NOTE: Electronically Signed By: MARJ KO MD 12/09/19 0629 PATIENT NAME: BRIDGETT ZARAGOZA OPERATIVE REPORT DATE OF : 52 REPORT #: [id number] PHYSICIAN: MARJ KO MD PCP: JEWELL DUKE MD REPORT IS CONFIDENTIAL AND NOT TO BE RELEASED WITHOUT AUTHORIZATION [facility] [address], [place] [address] Signed Bridgett was taken into our endoscopy suite and placed in the left lateral decubitus position. She was given a total of 7 mg of Versed and 100 mcg of fentanyl to cover the case. A digital rectal exam was performed and this was unremarkable. The adult colonoscope was introduced and advanced under direct visualization of the camera. It took some extra sedation and abdominal compression in order to advance the scope directly into the cecum itself. Her prep was moderate. There were a couple of areas of liquid particulate stool matter, most of that was suctioned out. We could see the appendiceal orifice and ileocecal valve. We took pictures throughout for photodocumentation. The scope was slowly withdrawn. Once again, she had multiple small hyperplastic polyps, which were removed with the help of hot biopsy forceps. On this occasion, it appears that her tattoo was much closer to the splenic flexure than the actual hepatic flexure. We also noticed she does have a pandiverticulosis. It is [id number]. They were average in size, a few in number, and scattered about. Once down in the rectum, we did discover a polyp just above the anal canal and we had to get removed that with the help of our snare. She also has moderate internal hemorrhoid columns. After this, the gas was suctioned out and colonoscope removed. Breanna tolerated the procedure quite well. RECOMMENDATIONS: I will see Breanna back in my office in 7 to 14 days to review her results. She should probably consider repeat colonoscopy before her 5-year interval. Marj Ko MD ALB/MODL /[id number] cc: Jewell Duke MD Chart Filed Incomplete Marj Ko MD Copies: CHART FILED INCOMPLETE Electronically Signed By: MARJ KO MD 12/09/19 0629 PATIENT NAME: BRIDGETT ZARAGOZA OPERATIVE REPORT DATE OF : 52 REPORT #: [id number] PHYSICIAN: MARJ KO MD PCP: JEWELL DUKE MD REPORT IS CONFIDENTIAL AND NOT TO BE RELEASED WITHOUT AUTHORIZATION [address] [address] Signed MARJ KO MD ~ Electronically Signed By: MARJ KO MD 12/09/19 0629 PATIENT NAME: BRIDGETT ZARAGOZA OPERATIVE REPORT DATE OF : 52 REPORT #: [id number] PHYSICIAN: MARJ KO MD PCP: JEWELL DUKE MD REPORT IS CONFIDENTIAL AND NOT TO BE RELEASED WITHOUT AUTHORIZATION
--- NOTE | 2019-12-09 11:15 | PATH ---
[facility] [address] [place], [place] [address] Signed SPECIMEN(S): A DESCENDING POLYP SPECIMEN(S): B HEPATIC FLEXURE POLYP SPECIMEN(S): C MID TRANSVERSE POLYP SPECIMEN(S): D SPLENIC FLEXURE POLYP SPECIMEN(S): E COLON POLYP AT 80 CM SPECIMEN(S): F COLON POLYP AT 65 CM SPECIMEN(S): G COLON POLYP AT 32 CM SPECIMEN(S): H COLON POLYP AT 4 CM SPECIMEN SOURCE: A. DESCENDING POLYP B. HEPATIC FLEXURE POLYP C. MID TRANSVERSE POLYP D. SPLENIC FLEXURE POLYP E. COLON POLYP AT 80 CM F. COLON POLYP AT 65 CM G. COLON POLYP AT 32 CM H. COLON POLYP AT 4 CM CLINICAL HISTORY: Hemorrhoids, rectal bleeding, history of polyps. Post-op: Colorectal polyps, hemorrhoids, diverticulosis. Rule out #7 polyps x 3, #8 polyps x 2. Colonoscopy. MICROSCOPIC DESCRIPTION: Histologic sections of all submitted blocks are examined by light microscopy. These findings, together with the gross examination, support the pathologic diagnosis. FINAL PATHOLOGIC DIAGNOSIS: A. Colon, descending, polyp, polypectomy: - Fragments of tubular adenoma. - Negative for high-grade dysplasia or malignancy. B. Colon, hepatic flexure, polyp, polypectomy: - Fragments of cauterized colonic mucosa with focal thickened muscularis mucosa, see comment. - Negative for dysplasia or malignancy. C. Colon, mid transverse, polyp, polypectomy: - Fragments of tubular adenoma. - Negative for high-grade dysplasia or malignancy. D. Colon, splenic flexure, polyp, polypectomy: - Tubular adenoma. PATIENT NAME: HUNTER ZARAGOZA PATHOLOGY DATE OF : 52 REPORT #: [id number] PHYSICIAN: LEI PATHOLOGY PCP: JEANIE HUERTA MD REPORT IS CONFIDENTIAL AND NOT TO BE RELEASED WITHOUT AUTHORIZATION [facility] [address] [place], [place] [address] Signed - Negative for high-grade dysplasia or malignancy. E. Colon, polyp at 80 cm, polypectomy: - Tubular adenoma. - Negative for high-grade dysplasia or malignancy. F. Colon, polyp at 65 cm, polypectomy: - Tubular adenoma. - Negative for high-grade dysplasia or malignancy. G. Colon, polyps at 32 cm, polypectomy: - Fragments of cauterized tubular adenoma(s); negative for high-grade dysplasia. - Fragments of colonic mucosa with mild hyperplastic mucosal changes. - Negative for malignancy. H. Colon, polyps at 4 cm, polypectomy: - Fragments of tubular adenoma(s). - Negative for high-grade dysplasia or malignancy. COMMENT: Regarding specimen B: The findings could represent a submucosal leiomyoma; colonoscopic correlation is suggested. NAL:cml:C2NR GROSS DESCRIPTION: Eight specimens are received in eight containers, labeled "PH." A. The specimen, labeled "' PH, 1," and designated on the requisition "descending colon polyp," is received in formalin and consists of two salvador soft tissue fragments that measure 0.3 cm in greatest dimension. The specimen is entirely submitted in cassette (A1). B. The specimen, labeled "PH, 2," and designated on the requisition "hepatic flexure polyp," is received in formalin and consists of two salvador soft tissue fragments that measure 0.3 cm in greatest dimension. The specimen is entirely submitted in cassette (B1). C. The specimen, labeled "PH, 3," and designated on the requisition "mid transverse colon polyp," is received in formalin and consists of three salvador soft tissue fragments with vegetable matter that measure 0.2-0.3 cm in greatest dimension. The specimen is entirely submitted in cassette (C1). D. The specimen, labeled "PH, 4," and designated on the requisition "splenic flexure polyp," is received in formalin and consists of one salvador soft tissue fragment that measures 0.3 cm in greatest dimension. The specimen is entirely submitted in cassette (D1). PATIENT NAME: HUNTER ZARAGOZA PATHOLOGY DATE OF : 52 REPORT #: [id number] PHYSICIAN: LEI BRANHAM PCP: JEANIE HUERTA MD REPORT IS CONFIDENTIAL AND NOT TO BE RELEASED WITHOUT AUTHORIZATION [facility] [address] [place], [place] [address] Signed E. The specimen, labeled "PH, 5," and designated on the requisition "colon polyp at 80 cm," is received in formalin and consists of one salvador soft tissue fragment that measured 0.2 cm in greatest dimension. The specimen is entirely submitted in cassette (E1). F. The specimen, labeled "PH, 6," and designated on the requisition "colon polyp at 65 cm," is received in formalin and consists of one salvador soft tissue fragment that measures 0.3 cm in greatest dimension. The specimen is entirely submitted in cassette (F1). G. The specimen, labeled "PH, 7," and designated on the requisition "colon polyp at 32 cm," is received in formalin and consists of four salvador soft tissue fragments that measure 0.2-0.4 cm in greatest dimension. The specimen is entirely submitted in cassette (G1). H. The specimen, labeled "PH, 8," and designated on the requisition "colon polyp at 4 cm," is received in formalin and consists of four salvador soft tissue fragments that measure 0.2-0.5 cm in greatest dimension. The specimen is entirely submitted in cassette (H1). AT (under the direct supervision of a pathologist) The Gross Description was prepared using a voice recognition system. The report was reviewed for accuracy; however, sound-alike word errors, addition and/or deletions may occur. If there is any question about this report, please contact Client Services. PERFORMING LABORATORY: The technical component was performed [place] [address] (Studio Sales Associate: Tonie Thomason MD; CLIA# [id number]). Professional [facility] [place] [facility] [place] [place] [address] (CLIA# [id number]). Diagnostician: Iowna Arroyo MD Pathologist Electronically Signed 12/09/2019 Copies: ~ PATIENT NAME: HUNTER ZARAGOZA PATHOLOGY DATE OF : 52 REPORT #: [id number] PHYSICIAN: LEI BRANHAM PCP: JEANIE HUERTA MD REPORT IS CONFIDENTIAL AND NOT TO BE RELEASED WITHOUT AUTHORIZATION
== END 2019-12-08 12:20 | disposition home or self-care (01) ==
LOC: OPS 09:03 → DS 09:09 → OPS 10:30
PROVIDERS: ATTEND Colon & Rectal Surgery
PROC: 0DBE8ZZ Excision of Large Intestine, Via Natural or Artificial Opening Endoscopic (ICD-10-PCS; 2019-12-08)
PROC: 0DBL8ZZ Excision of Transverse Colon, Via Natural or Artificial Opening Endoscopic (ICD-10-PCS; 2019-12-08)
PROC: 0DBM8ZZ Excision of Descending Colon, Via Natural or Artificial Opening Endoscopic (ICD-10-PCS; principal; 2019-12-08 10:30)
DX: D12.4 Benign neoplasm of descending colon (principal); D12.3 Benign neoplasm of transverse colon; D12.6 Benign neoplasm of colon, unspecified; K64.8 Other hemorrhoids; K57.30 Diverticulosis of large intestine without perforation or abscess without bleeding; N25.1 Nephrogenic diabetes insipidus; E03.9 Hypothyroidism, unspecified; F41.9 Anxiety disorder, unspecified; F31.9 Bipolar disorder, unspecified; E55.9 Vitamin D deficiency, unspecified; G47.00 Insomnia, unspecified; Z86.010 Personal history of colon polyps; Z83.71 Family history of colonic polyps; Z79.899 Other long term (current) drug therapy; Z91.048 Other nonmedicinal substance allergy status; Z88.5 Allergy status to narcotic agent; Z88.2 Allergy status to sulfonamides; Z91.011 Allergy to milk products; Z87.891 Personal history of nicotine dependence; Z79.84 Long term (current) use of oral hypoglycemic drugs
CPT/HCPCS: 99153; G0500; J2250; J3010; J7121

== ENCOUNTER 2021-08-27 10:18 | Emergency (ER) | payer OTHER ==
[~2021-08-27] VITALS: Ht 152.4 cm; Wt 71.7 kg
[2021-08-27] MEDS ORDERED: AMOX TR-K CLV1 EAC1 PO (10:35)
== END 2021-08-27 11:17 | disposition home or self-care (01) ==
LOC: ED 10:18
DX: S81.851A Open bite, right lower leg, initial encounter (principal); W55.01XA Bitten by cat, initial encounter; E11.9 Type 2 diabetes mellitus without complications; Z87.891 Personal history of nicotine dependence; Z88.5 Allergy status to narcotic agent; Z88.2 Allergy status to sulfonamides; Z88.8 Allergy status to other drugs, medicaments and biological substances; Z79.899 Other long term (current) drug therapy; Z23 Encounter for immunization
CPT/HCPCS: 90715

== ENCOUNTER 2022-07-26 15:41 | Emergency (ER) | payer MEDICARE, OTHER ==
[~2022-07-26] VITALS: Ht 152.4 cm; Wt 70.8 kg
[~2022-07-26 15:41] MED LIST changes: +AMOX TR-K CLV1 EAC1 PO
[2022-07-26 18:14] VITALS: BP 119/53
--- NOTE | 2022-07-27 06:42 | EKG ---
[facility] [address] [facility] [place], [place] [address] Signed Sinus tachycardia When compared with ECG of 28-MAR-2021 11:32, No significant change was found Confirmed by MONY CAREY MD ([id number]) on 07/27/2022 6:42:38 AM Electronically Signed By: MONY CAREY 07/27/22 0642 PATIENT NAME: HUNTER ZARAGOZA Electrocardiogram DATE OF : 52 PHYSICIAN: MONY CAREY REPORT #: [id number] REPORT IS CONFIDENTIAL AND NOT TO BE RELEASED WITHOUT AUTHORIZATION
== END 2022-07-26 18:14 | disposition home or self-care (01) ==
LOC: ED 15:41
DX: R55 Syncope and collapse (principal); S02.2XXA Fracture of nasal bones, initial encounter for closed fracture; W22.8XXA Striking against or struck by other objects, initial encounter; E11.9 Type 2 diabetes mellitus without complications; I48.91 Unspecified atrial fibrillation; Z87.891 Personal history of nicotine dependence; Z88.5 Allergy status to narcotic agent; Z88.8 Allergy status to other drugs, medicaments and biological substances; Z88.2 Allergy status to sulfonamides; Z79.899 Other long term (current) drug therapy
CPT/HCPCS: 36415; 70450; 70486; 72125; 80053; 82150; 82553; 83605; 83690; 85025; 86850; 86900; 86901; 90471; 90715; 93005; 93010; 99284-25; A9270; G0480

== ENCOUNTER 2023-02-05 07:00 | Day surgery (SDC) | payer MEDICARE, OTHER ==
[~2023-02-05] VITALS: Ht 152.4 cm; Wt 68.3 kg
[2023-02-05 07:28] VITALS: BP 124/54
--- NOTE | 2023-02-05 07:37 | NUR ---
DS ROUNDS. NURSING STAFF IN WITH PATIENT. DID NOT INTERRUPT. PROVIDED SILENT PRAYER.
--- NOTE | 2023-02-05 10:27 | NUR ---
02/05/23 1027 Charmaine Christy 5702- PT ARRIVES TO PACU, LEFT LATERAL POSITION NON REACTIVE TO STIMULUS. PT ON ROOM AIR, BREATHING EVEN AND NON LABORED. ALL MONITORS IN PLACE. LR INFUSING TO RH IV. ABD SOFT NON DISTENDED, NO DRAINAGE FROM RECTUM NOTED. WILL CONTINUE TO MONITOR. 1000- PT CONTINUES TO BE NON REACTIVE TO STIMULUS, RESTING COMFORTABLY. NO SIGNS OF DISTRESS. BREATHING EVEN AND NON LABORED. WILL CONTINUE TO MONITOR. 1015- NO CHANGE IN PT RESPONSIVENESS. BREATHING EVEN AND NON LABORED. 1021- PT WAKES TO TACTILE AND VOICE STIMULUS. PT RESPONDS BUT DOESN'T OPEN EYES. DENIES PAIN AND NAUSEA. ENCOURAGED TO PASS GAS. PT HAS NO COMPLAINTS. REORIENTED TO TIME AND PLACE. WILL CONTINUE TO MONITOR.
[2023-02-05 11:29] VITALS: BP 121/56
--- NOTE | 2023-02-06 07:30 | OR ---
[facility] [address] [place], [place] [address] Signed DATE OF OPERATION: 02/05/2023 SURGEON: Marj Ko MD PREOPERATIVE DIAGNOSES: 1. Personal history of colonic polyps in 2020 at age 69. 2. A sister with a history of colonic polyps. 3. Diverticulosis. 4. Internal hemorrhoids. 5. Irritable bowel syndrome. 6. 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 7. Tattoo in transverse colon. POSTOPERATIVE DIAGNOSES: 1. Rectal varices. 2. Tattoo in transverse colon. 3. 5 mm polyp at 40 cm in the left colon. 4. 5 mm polyp at hepatic flexure. 5. 5 mm polyp at 23 cm in sigmoid colon. 6. Moderate left-sided diverticulosis. PROCEDURE: Colonoscopy with hot biopsy. ESTIMATED BLOOD LOSS: None. INDICATIONS: Bridgett is a 72-year-old female who I have known for quite some time. She has a long history of mostly hyperplastic polyps, but also she had five adenomatous polyps removed in 2019. She was asked to come back on a third year interval. She also has a history of left-sided diverticulosis and internal hemorrhoids. 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 They found some gastritis, Nichole's esophagus and esophagitis in 2020. She is known to have cirrhosis of the liver and possibly splenomegaly. I did not seem to feel she had any esophageal varices. That Gastroenterology group has been in transmission. Consequently, she was asked to see me for a followup colonoscopy. We know she has a tattoo in her transverse colon. I had met with Bridgett in the office. I gave her a brochure on colonoscopy. She remembers the test well. There is risk including, but not limited to gas bloating crampy abdominal pain, bleeding and perforation requiring surgery and missed diagnosis. Also, Electronically Signed By: MARJ KO MD 02/06/23 0730 PATIENT NAME: BRIDGETT ZARAGOZA OPERATIVE REPORT DATE OF : 52 REPORT #: [id number] PHYSICIAN: MARJ KO MD PCP: JEWELL DUKE MD REPORT IS CONFIDENTIAL AND NOT TO BE RELEASED WITHOUT AUTHORIZATION [facility] [address] [place], [place] [address] Signed she has done well with Versed and fentanyl in the past. Therefore, we scheduled her in that way. She had expressed understanding and wished to proceed. PROCEDURE IN DETAIL: Bridgett was taken into our endoscopy suite and placed in the left lateral decubitus position. She was given Versed and fentanyl in divided doses. A digital rectal exam was performed and there were no external hemorrhoids. She had good sphincter tone. There were no masses. The adult colonoscope was introduced in the rectum. We could easily see multiple large distal rectal varices. We passed the scope up to the sigmoid colon and we simply could not pass the scope any further under Versed and fentanyl. We called in our anesthesia provider, who added some propofol. She was able to relax and we were able to pass the scope right up to the cecum itself. It took just a few minutes as there was a little tension coming around hepatic flexure. Before propofol she was awake and talking to us and then not breathing without stimulation. I think in the future she will be better served with propofol infusion. Fortunately, her prep was good. There were some areas of liquid stool, most of that was suctioned out. We could easily see the appendiceal orifice and ileocecal valve. We withdrew the scope several times to the right colon, hepatic flexure back until we were convinced that there were no areas of concern. She did have her polyps removed as stated above with a hot biopsy forceps. We could see the tattoo in the transverse colon. As we came to the left of sigmoid colon of course she has diverticulosis. They are moderate in size, moderate in number and scattered about. Once in the rectum, the scope was then retroflexed and again we could see these moderate size rectal varices right down to the internal hemorrhoid columns. After this, the gas was suctioned out and colonoscope removed. Bridgett tolerated the procedure quite well. RECOMMENDATIONS: I will see Bridgett back in my office in 7 to 14 days to review her results. Marj Ko MD ALB/MODL /[id number] cc: Jewell Duke MD Electronically Signed By: MARJ KO MD 02/06/23 0730 PATIENT NAME: BRIDGETT ZARAGOZA OPERATIVE REPORT DATE OF : 52 REPORT #: [id number] PHYSICIAN: MARJ KO MD PCP: JEWELL DUKE MD REPORT IS CONFIDENTIAL AND NOT TO BE RELEASED WITHOUT AUTHORIZATION [address] [address] Signed Marj Ko MD Copies: MARJ KO MD ~ Electronically Signed By: MARJ KO MD 02/06/23 0730 PATIENT NAME: BRIDGETT ZARAGOZA OPERATIVE REPORT DATE OF : 52 REPORT #: [id number] PHYSICIAN: MARJ KO MD PCP: JEWELL DUKE MD REPORT IS CONFIDENTIAL AND NOT TO BE RELEASED WITHOUT AUTHORIZATION
--- NOTE | 2023-02-06 12:01 | PATH ---
[facility] [address] [place], [place] [address] Signed SPECIMEN(S): A DESCENDING/LEFT COLON POLYP AT 40 CM SPECIMEN(S): B HEPATIC FLEXURE COLON POLYP SPECIMEN(S): C SIGMOID POLYP AT 23 CM SPECIMEN SOURCE: A. DESCENDING/LEFT COLON POLYP AT 40 CM B. HEPATIC FLEXURE COLON POLYP C. SIGMOID POLYP AT 23 CM CLINICAL HISTORY: Polyps, diverticulosis, internal hemorrhoids FINAL PATHOLOGIC DIAGNOSIS: A. Descending/left colon polyp, biopsy: - Hyperplastic polyp. B. Hepatic flexure polyp, biopsies: - Fragments of tubular adenoma. C. Sigmoid polyp at 23 cm, biopsy: - Hyperplastic polyp. AMB MICROSCOPIC EXAMINATION: Histologic sections of all submitted blocks are examined by light microscopy. These findings, together with the gross examination, support the pathologic diagnosis. GROSS DESCRIPTION: A. The specimen, labeled and designated "Xiomara Zaragoza, " and designated on the requisition "colon, descending/left polypectomy at 40 cm," is received in formalin and consists of one salvador soft polypoid tissue fragment and multiple full salvador-yellow and brown fragments of fecal debris measuring 0.8 x 0.2 x 0.1 cm in aggregate, all specimens are submitted entirely in (A1). B. The specimen, labeled and designated "Xiomara Zaragoza, " and designated on the requisition "colon, hepatic flexure polypectomy," is received in formalin and consists of two salvador soft tissue fragments measuring 0.3 to 0.4 cm in length and up to 0.3 cm in greatest diameter, all specimens are submitted entirely in (B1). C. The specimen, labeled and designated "Xiomara Zaragoza, " and designated on the requisition "colon, sigmoid polypectomy at 23 cm," is received in formalin and consists of one salvador soft tissue fragment PATIENT NAME: HUNTER ZARAGOZA PATHOLOGY DATE OF : 52 REPORT #: [id number] PHYSICIAN: LEI BRANHAM PCP: JEANIE HUERTA MD REPORT IS CONFIDENTIAL AND NOT TO BE RELEASED WITHOUT AUTHORIZATION [facility] [address] [place], [place] [address] Signed measuring 0.3 cm, the specimen is submitted entirely in (C1). MMA (under the direct supervision of a pathologist) The Gross Description was prepared using a voice recognition system. The report was reviewed for accuracy; however, sound-alike word errors, addition and/or deletions may occur. If there is any question about this report, please contact Client Services. ADDITIONAL NOTES: Immunohistochemical and/or in situ hybridization studies if performed in this case included appropriate positive controls that reacted as expected. This test was developed and its performance characteristics determined by [facility] It has not been cleared or approved by the U.S. Food and Drug Administration. The FDA has determined that such clearance or approval is not necessary. This test is used for clinical purposes. It should not be regarded as investigational or for research. [facility] is certified under the Clinical Laboratory Improvement Amendments of 1988 (CLIA) as qualified to perform high complexity clinical laboratory testing. PERFORMING LABORATORY: Technical component was performed by [facility] [address] [place] [id number] (CLIA# [id number]). Professional interpretation was performed by [facility] [address] [place] [id number] Diagnostician: Tonie Thomason MD Pathologist Electronically Signed 02/06/2023 Copies: ~ PATIENT NAME: HUNTER ZARAGOZA PATHOLOGY DATE OF : 52 REPORT #: [id number] PHYSICIAN: [facility]I PATHOLOGY PCP: JEANIE HUERTA MD REPORT IS CONFIDENTIAL AND NOT TO BE RELEASED WITHOUT AUTHORIZATION
== END 2023-02-05 11:25 | disposition home or self-care (01) ==
LOC: DS 07:00 → OPS 07:00 → DS 08:15 → OPS 08:15
PROVIDERS: ATTEND Colon & Rectal Surgery
PROC: 0DBL8ZZ Excision of Transverse Colon, Via Natural or Artificial Opening Endoscopic (ICD-10-PCS; 2023-02-05)
PROC: 0DBN8ZZ Excision of Sigmoid Colon, Via Natural or Artificial Opening Endoscopic (ICD-10-PCS; 2023-02-05)
PROC: 0DBM8ZZ Excision of Descending Colon, Via Natural or Artificial Opening Endoscopic (ICD-10-PCS; principal; 2023-02-05 08:15)
DX: K63.5 Polyp of colon (principal); Z86.010 Personal history of colon polyps; K57.30 Diverticulosis of large intestine without perforation or abscess without bleeding; K64.8 Other hemorrhoids; K58.9 Irritable bowel syndrome, unspecified; R41.3 Other amnesia; Z83.719 Family history of colon polyps, unspecified; K74.60 Unspecified cirrhosis of liver
CPT/HCPCS: 00811; 88305; J2250; J2704; J3010; J7121

== ENCOUNTER 2023-02-28 16:02 | Emergency (ER) | payer MEDICARE, OTHER ==
[~2023-02-28] VITALS: Ht 152.4 cm; Wt 65.8 kg
[2023-02-28 16:33] LABS: BASOPHILS 0.9 % (0-2); EOSINOPHILS 1.3 % (0-6); HEMATOCRIT 33.4 % (35.0-50.0); HEMOGLOBIN 11.2 g/dL (12.0-18.0); LYMPHOCYTES 18.8 % (24-44); MCHC 33.5 g/dl (30-36); MCV 86.5 fl (81-99); MONOCYTES 8.4 % (0-12); NEUTROPHILS 70.6 % (39-80); PLATELET COUNT 124 K/uL (140-440); RBC 3.86 M/ul (4.3-5.7); RDW 14.7 (10.5-15.0)
[2023-02-28 16:40] LABS: BILIRUBIN, URINE NEGATIVE (negative); BLOOD/HGB, URINE NEGATIVE (Negative); KETONE, URINE NEGATIVE (Negative); LEUK ESTERASE, URINE MODERATE (negative); NITRITE, URINE NEGATIVE (negative)
[2023-02-28 16:46] LABS: RED BLOOD CELLS, URINE 0-1 /hpf (0-5); WHITE BLOOD CELLS, URINE 21-40 /HPF (0-5)
[2023-02-28 16:47] LABS: BACTERIA, URINE 4+ /hpf (negative); CASTS, URINE NONE SEEN \\lpf; CRYSTALS, URINE NONE SEEN (0-1+); EPITHELIAL CELLS, URINE SQUAMOUS 3+ /lpf (0-1+)
[2023-02-28 16:48] LABS: COLLECTION TYPE, URINE CLEAN CATCH; REFLEX CULTURE, URINE No (No)
[2023-02-28 16:57] LABS: ALBUMIN 3.6 g/dL (3.4-5.0); ALBUMIN/GLOBULIN RATIO 0.73 (1.1-2.4); ANION GAP 14.8 (7-21); BILIRUBIN, TOTAL 0.8 ng/dL (0.2-1.0); BUN/CREATININE RATIO 9.89 (6.0-28.6); CREATININE, SERUM 0.91 mg/dL (0.55-1.02); POTASSIUM 3.8 mmol/L (3.5-5.1); PROTEIN, TOTAL 8.5 g/dL (6.4-8.2)
[2023-02-28 19:19] VITALS: BP 110/55
== END 2023-02-28 19:12 | disposition home or self-care (01) ==
LOC: ED 16:02
PROVIDERS: Emergency Medicine
DX: R10.11 Right upper quadrant pain (principal); R10.31 Right lower quadrant pain; E11.9 Type 2 diabetes mellitus without complications; Z88.8 Allergy status to other drugs, medicaments and biological substances; Z87.891 Personal history of nicotine dependence; Z88.5 Allergy status to narcotic agent; Z88.2 Allergy status to sulfonamides; Z79.899 Other long term (current) drug therapy; Z79.84 Long term (current) use of oral hypoglycemic drugs
CPT/HCPCS: 36415; 74177; 76705; 80053; 81001; 83690; 85025; J1170; J2405; J7040; Q9967

== ENCOUNTER 2023-09-13 17:23 | Emergency (ER) | payer MEDICARE, OTHER ==
[~2023-09-13] VITALS: Ht 152.4 cm; Wt 57.9 kg
[~2023-09-13 17:23] MED LIST changes: +GABAPENTIN100 MG PO; +GLIPIZIDE ER5 MG PO; +ONDANSETRON ODT8 MG PO; +PREGABALIN75 MG PO
[2023-09-13] MEDS ORDERED: ASPIRIN 325 MG TAB PO ONE (17:30)
[2023-09-13 17:52] LABS: BASOPHILS 0.9 % (0-2); EOSINOPHILS 3.6 % (0-6); HEMATOCRIT 26.7 % (35.0-50.0); HEMOGLOBIN 8.9 g/dL (12.0-18.0); LYMPHOCYTES 28.5 % (24-44); MCH 30.8 (27-36); MCHC 33.2 g/dl (30-36); MCV 92.6 fl (81-99); MONOCYTES 11.8 % (0-12); NEUTROPHILS 55.2 % (39-80); PLATELET COUNT 73 K/uL (140-440); RBC 2.88 M/ul (4.3-5.7); RDW 15.9 (10.5-15.0)
[2023-09-13 18:13] LABS: ALBUMIN/GLOBULIN RATIO 0.71 (1.1-2.4); ALKALINE PHOSPHATASE 69 U/L (46-116); ALT (SGPT) 18 U/L (14-59); ANION GAP 9.8 (7-21); AST (SGOT) 25 U/L (15-37); BILIRUBIN, TOTAL 0.6 ng/dL (0.2-1.0); CALCIUM 8.5 mg/dL (8.5-10.1); CARBON DIOXIDE 28 mmol/L (21-32); CHLORIDE 103 mmol/L (98-107); CREATININE, SERUM 0.75 mg/dL (0.55-1.02); GLOMERULAR FILTRATION RATE,EST 85 mL/min (>60); MAGNESIUM 1.8 mg/dL (1.8-2.4); POTASSIUM 3.8 mmol/L (3.5-5.1); PROTEIN, TOTAL 7.2 g/dL (6.4-8.2); UREA NITROGEN 9 mg/dL (7-18)
[2023-09-13] MEDS ORDERED: LIDOCAINE HCL 4% 1 EACH PATCH TD ONE (18:30)
[2023-09-13 19:36] VITALS: BP 119/51
[2023-09-13] MEDS ORDERED: LIDOCAINE PATCH REMOVAL 1 EA TD SCH (21:00)
--- NOTE | 2023-09-15 09:42 | EKG ---
[facility] [address] [facility] [place], [place] [address] Signed Normal sinus rhythm Normal ECG No previous ECGs available Confirmed by ANURADHA AVENDANO MD ([id number]) on 09/15/2023 9:41:55 AM Electronically Signed By: ANURADHA AVENDANO 09/15/23 0942 PATIENT NAME: HUNTER ZARAGOZA Electrocardiogram DATE OF : 52 PHYSICIAN: ANURADHA AVENDANO REPORT #: [id number] REPORT IS CONFIDENTIAL AND NOT TO BE RELEASED WITHOUT AUTHORIZATION
== END 2023-09-13 19:36 | disposition home or self-care (01) ==
LOC: ED 17:23
PROVIDERS: Emergency Medicine
DX: R07.89 Other chest pain (principal); R06.02 Shortness of breath; E11.9 Type 2 diabetes mellitus without complications; Z87.891 Personal history of nicotine dependence; Z88.5 Allergy status to narcotic agent; Z88.2 Allergy status to sulfonamides; Z88.8 Allergy status to other drugs, medicaments and biological substances; Z79.899 Other long term (current) drug therapy; Z79.890 Hormone replacement therapy; Z79.84 Long term (current) use of oral hypoglycemic drugs
CPT/HCPCS: 36415; 71045; 71260; 80053; 83735; 83880; 84484; 85025; 85379; 99285-25; A9270; Q9967

== ENCOUNTER 2023-11-13 10:05 | Day surgery (SDC) | payer MEDICARE, OTHER ==
[2023-11-04 14:13] VITALS: BP 111/65
[~2023-11-13] VITALS: Ht 154.9 cm; Wt 70.0 kg
[~2023-11-13 10:05] MED LIST changes: +IBLOOD GLUCOSE TEST STRIP 1 EA TEST VI PRN; +LACTATED RINGER'S 1,000 ML IV SCH; +LIDOCAINE HCL 1% 5 ML SDV INJ ONE; +MIDAZOLAM HCL 5 MG/5 ML VIAL IV PRN; +fentaNYL citrate 100 MCG/2 ML VIAL IV PRN
[2023-11-13 10:43] LABS: BASOPHILS 0.9 % (0-2); BASOPHILS, ABSOLUTE 0 %; EOSINOPHILS 2.2 % (0-6); EOSINOPHILS, ABSOLUTE 0.1; HEMATOCRIT 33.4 % (35.0-50.0); HEMOGLOBIN 11.2 g/dL (12.0-18.0); LYMPHOCYTES 26.1 % (24-44); LYMPHOCYTES, ABSOLUTE 1.4; MCH 31.1 (27-36); MCHC 33.6 g/dl (30-36); MCV 92.6 fl (81-99); MONOCYTES 6.9 % (0-12); MONOCYTES, ABSOLUTE 0.4; NEUTROPHILS 63.9 % (39-80); NEUTROPHILS, ABSOLUTE 3.3; PLATELET COUNT 110 K/uL (140-440); RBC 3.61 M/ul (4.3-5.7); RDW 14.6 (10.5-15.0)
[2023-11-13 10:50] VITALS: BP 113/41
[2023-11-13] MEDS ORDERED: propofoL 200 MG/20 ML VIAL ONE (11:25)
[2023-11-13 12:43] VITALS: BP 125/57
--- NOTE | 2023-11-13 13:16 | NUR ---
11/13/23 1316 MICAH MONROE 1219 PT ARRIVED TO PACU VIA STRECHER. REPORT TAKEN FROM MIRTHA TILLEY CRNA. PT ARRIVED ON 10L VIA FACE MASK, PT HAS NATURAL AIRWAY. PT BREATHING EQUAL AND UNLABORED. PT AROUSABLE TO VERBAL STIMULI. 1222 BLOOD GLUCOSE 113. PT REMOVED FROM OXYGEN, PT OXYGEN SATURATION STAYS ABOVE 96% ON RA. 1235 PT SITTING UPRIGHT IN BED, PT SIPPING WATER. PT REPORTS NO PAIN OR NAUSEA AT THIS TIME. 1240 PT DISCHARGE INFORMATION GONE OVER WITH PATIENT. PT HAS NO QUESTIONS AT THIS TIME. 1245 PT GETTING DRESSED. PT TAKEN TO THE BATHROOM TO URINATE. PT ABLE TO WALK TO WHEELCHAIR WITH STEADY GAIT. 1300 PT DISCHARGED FROM PACU WITH DISCHARGE INFORMATION IN HAND, PT HAS PACKET INFORMATION ABOUT BONE MARROW BIOPSIES. PT DISCAHRGED VIA WHEELCHAIR TO THE FRONT OF THE HOSPITAL TO PT'S SISTERS CAR.
--- NOTE | 2023-11-15 17:05 | PATH ---
[facility] [address] [facility] [place], [place] [address] Signed SPECIMEN(S): A BONE MARROW - CORE SPECIMEN(S): B BONE MARROW - ASPIRATION SPECIMEN(S): C FLOW CYTOMETRY, BM EDTA CLINICAL HISTORY: 73-year-old female with cirrhosis, splenomegaly and pancytopenia DIAGNOSIS SUMMARY: A. Peripheral blood: - Mild normocytic normochromic anemia. - Mild thrombocytopenia. B. Bone marrow aspirate smears, clot section/cellblock and core biopsy: - Normocellular bone marrow with trilineage progressive hematopoiesis and mild erythroid hyperplasia. - Negative for significant dyspoiesis. - Negative for increase in plasma cells or infiltrative bone marrow process. - See diagnostic comment. DIAGNOSTIC COMMENT: Bone marrow morphologic evaluation demonstrate normocellular bone marrow with mild erythroid hyperplasia noted. No significant dyshematopoiesis identified. Concurrent flow cytometry analysis demonstrates no increase in blasts and normal myeloid maturation. The study shows atypical, kappa biased plasma cell population. However, no significant increase in plasma cells identified by morphology or immunohistochemistry and no light chain restriction identified by in situ hybridization for kappa and lambda. The clinical significance of this finding is not clear and clinical correlation with serum protein electrophoresis would be helpful. Cytogenetic studies, FISH panel for MDS and FISH panel for multiple myeloma are pending and will be reported in an addendum PERIPHERAL BLOOD: Hemogram ([facility], 11/13/2023): WBCs 5.2K/UL, RBC 3.61M/UL, hemoglobin 11.2 g/DL, hematocrit 33.4%, MCV 92.6 FL, MCH 31.1 PG, MCHC 33.6 g/DL, RDW 14.6%, platelets 100 10K/UL. Peripheral blood differential: 64% neutrophils 26% lymphocytes 7% monocytes 2% eosinophils 1% basophils. Review of peripheral blood smear and CBC data demonstrate that RBCs are decreased in number and are normocytic normochromic with mild anemia present. No rouleaux formation or nucleated RBCs are PATIENT NAME: HUNTER ZARAGOZA PATHOLOGY DATE OF : 52 REPORT #: [id number] PHYSICIAN: LEI PATHOLOGY PCP: JEANIE HUERTA MD REPORT IS CONFIDENTIAL AND NOT TO BE RELEASED WITHOUT AUTHORIZATION [facility] [address] [place], [place] [address] Signed encountered. WBCs are normal in number and distribution. The neutrophils show unremarkable morphology with no immature cells/blasts present. The platelets are slightly decreased in number with unremarkable morphology. BONE MARROW: Bone marrow aspirate smears: The bone marrow aspirate smears are adequately cellular for evaluation. Trilineage hematopoiesis is present with progressive formalin maturation. There is no increase in blasts identified. The M:E ratio appears normal. No significant dyspoiesis is identified. Scattered plasma cells are seen and appear normal in number and morphology. The megakaryocytes are scattered with occasional unilobed hyperchromatic megakaryocytes encountered. Bone marrow differential: 1% blasts 4% promyelocytes 10% myelocytes 30% segmented neutrophils 6% lymphocytes 5% eosinophils 4% plasma cells and 40% erythroid. Bone marrow core biopsy and clot section the bone marrow core biopsy demonstrate normocellular bone marrow for age with and averaging cellularity of 25%. Trilineage hematopoiesis is present with progressive ordinary maturation. There is no lymphoid aggregates, granulomas or metastatic tumor cells present. No increased number of blasts is identified. No increased number of plasma cells is seen. The megakaryocytes are scattered and appear normal in number with occasional small megakaryocytes encountered. The clot sections show similar findings. Special stains: Performed with appropriately reactive control and show the following results: Iron (aspirate smears: Storage iron absent. Iron block A1): absent. Reticulin (block A1): no increase lymphoma reticulin fibrosis. Immunohistochemical stains: Performed on block A1 with appropriately reactive control and show the following results: CD34/CD117: No increased number of blast (1%). Myeloperoxidase: Highlights myeloid precursors. CD71: Highlights erythroid precursors, increased. Factor VIII: highlights adequate number of megakaryocytes. PAX5:: Highlights scattered B lymphocytes. CD138: Highlights scattered plasma cells (1 to 2%) ARMANDO [place]/lambda: Polytypic pattern. PATIENT NAME: HUNTER ZARAGOZA PATHOLOGY DATE OF : 52 REPORT #: [id number] PHYSICIAN: LEI BRANHAM PCP: JEANIE HUERTA MD REPORT IS CONFIDENTIAL AND NOT TO BE RELEASED WITHOUT AUTHORIZATION [facility] [address] [place], [place] [address] Signed FLOW CYTOMETRY: Bone marrow aspirate, flow cytometry: - Atypical plasma cell population detected. - No atypical B or T-cell population detected. - No increase in blasts (1.0% myeloblasts). - Normal myeloid maturation. - See Comment. COMMENT: About 0.3% of total events are atypical kappa-biased plasma cells. This atypical plasma cell population is negative for CD19 and positive for CD56. No atypical B or T-cell population is detected. Correlation with clinical and morphologic findings is needed. Flow cytometry analysis often underestimates the amount of plasma cells. FLOW CYTOMETRY ANALYSIS: FLOW DIFFERENTIAL (% Total CD45 vs. SSC gating): Myeloid 63%; Lymphoid 12%; Monocyte 4%; Dim CD45/Blast: 1.0%. Cell Count: 9.1 x 10*3/uL. POPULATION ANALYSIS: BLASTS: Analysis of the dim CD45 gate demonstrates 1.0% myeloblasts by CD34/CD117 and 5.5% hematogones. LYMPHOID CELLS: The lymphocyte gate comprises 12% of total events and includes 57% T-cells with a CD4:CD8 ratio of 2.3:1 and normal murry T-cell antigen expression. 21% of lymphocytes are polyclonal B-cells with a kappa:lambda ratio of 2.1:1. The remainders are NK-cells. MYELOID CELLS: The myeloid population comprises 63% of the total events. No aberrant immunophenotypic expression is detected. MONOCYTES: The monocyte population comprises 4% of the total events. Monocytes are not increased. No aberrant immunophenotypic expression is detected. PLASMA CELLS: A CD19 negative plasma cell subset is detected. For this reason, select additional antibodies are run to further characterize the plasma cells. 0.3% ckappa-biased plasma cells are detected (n=293) expressing CD45 DIM-NEG, CD38 BR, CD138 (variable), and CD56 MOD while negative for CD19 and CD20 with a ckappa:clambda ratio of 4.0:1. A polyclonal plasma cell population is also detected (0.2% of total events, n=285) expressing CD19 with a ckappa:clambda ratio of 1.5:1. Initial Antibodies Used: KAPPA, LAMBDA, CD20, CD10, CD19, CD23, CD38, CD16, CD56, CD8, CD5, CD2, CD4, CD7, CD3, CD14, CD33, CD13, HLADR, CD34, CD117, CD15, CD45 Additional Antibodies (necessary for further plasma cell analysis): ckappa, clambda, CD138. PATIENT NAME: HUNTER ZARAGOZA PATHOLOGY DATE OF : 52 REPORT #: [id number] PHYSICIAN: LEI PATHOLOGY PCP: JEANIE HUERTA MD REPORT IS CONFIDENTIAL AND NOT TO BE RELEASED WITHOUT AUTHORIZATION [facility] [address] [place], [place] [address] Signed Total Antibodies Used: 26. JNB FINAL DIAGNOSIS PERFORMED BY: Johnny Rivers MD, Nov 14 2023 7:01PM CYTOGENETICS: Pending will be reported in an addendum FISH ANALYSIS: FISH panel for MDS and multiple myeloma are pending and will be reported in an addendum GROSS DESCRIPTION: Two specimens are received in two containers A. The specimen, labeled and designated "Shannon, bone marrow core biopsy," is received in formalin and consists of a red-salvador core bone (2.0 cm in length by up to 0.2 cm in diameter). The specimen is submitted entirely in cassette (A1) following decalcification in Immunocal. B. The specimen, labeled and designated "Shannon, bone marrow clot biopsy," is received in formalin and consists of a portion of red-brown clot-like material (1.3 x 0.8 x 0.4 cm in aggregate). The specimen is submitted entirely in cassette (B1). VB (under the direct supervision of a pathologist) The Gross Description was prepared using a voice recognition system. The report was reviewed for accuracy; however, sound-alike word errors, addition and/or deletions may occur. If there is any question about this report, please contact Client Services. ADDITIONAL NOTES: Immunohistochemical and/or in situ hybridization studies if performed in this case included appropriate positive controls that reacted as expected. This test was developed and its performance characteristics determined by [facility]. It has not been cleared or approved by the U.S. Food and Drug Administration. The FDA has determined that such clearance or approval is not necessary. This test is used for clinical purposes. It should not be regarded as investigational or for research. [facility] is certified under the Clinical Laboratory Improvement Amendments of 1988 (CLIA) as qualified to perform high complexity clinical laboratory testing. In this case, certain antibodies were performed by both immunohistochemistry and flow cytometry analysis because flow cytometry analysis did not fully explain all the light microscopic findings. PATIENT NAME: HUNTER ZARAGOZA PATHOLOGY DATE OF : 52 REPORT #: [id number] PHYSICIAN: LEI BRANHAM PCP: JEANIE HUERTA MD REPORT IS CONFIDENTIAL AND NOT TO BE RELEASED WITHOUT AUTHORIZATION [address] [address] Signed Immunohistochemistry aided in the analysis. Both methods are deemed medically necessary in this case. Immunohistochemical and/or in situ hybridization studies if performed in this case included appropriate positive controls that reacted as expected. This test was developed and its performance characteristics determined by [facility]. It has not been cleared or approved by the U.S. Food and Drug Administration. The FDA has determined that such clearance or approval is not necessary. This test is used for clinical purposes. It should not be regarded as investigational or for research. [facility] is certified under the Clinical Laboratory Improvement Amendments of 1988 (CLIA) as qualified to perform high complexity clinical laboratory testing. PERFORMING LABORATORY: The technical preparation was performed by [facility], [address] [place], [place] [address], [place] [address] (CLIA#: [id number]). Professional interpretation was performed by [facility], [address] [place] [address] (CLIA# [id number]). Technical component was performed by [facility], [address] [place] [address] (CLIA# [id number]). Professional interpretation was performed by [facility], [address] [place] [address] (CLIA#: [id number]). IMAGES: [id number]: [id number]: [id number] Diagnostician: Johnny Rivers MD Pathologist Electronically Signed 11/15/2023 Copies: ~ PATIENT NAME: HUNTER ZARAGOZA PATHOLOGY DATE OF : 52 REPORT #: [id number] PHYSICIAN: [facility] PCP: JEANIE HUERTA MD REPORT IS CONFIDENTIAL AND NOT TO BE RELEASED WITHOUT AUTHORIZATION
== END 2023-11-13 13:00 | disposition home or self-care (01) ==
LOC: DS 10:05
PROVIDERS: ATTEND Specialist
PROC: 07DR0ZX Extraction of Iliac Bone Marrow, Open Approach, Diagnostic (ICD-10-PCS; principal; 2023-11-13 12:00)
DX: D61.818 Other pancytopenia (principal); K74.60 Unspecified cirrhosis of liver; R16.1 Splenomegaly, not elsewhere classified; E78.00 Pure hypercholesterolemia, unspecified; Z87.891 Personal history of nicotine dependence; Z79.899 Other long term (current) drug therapy; Z88.5 Allergy status to narcotic agent; Z88.2 Allergy status to sulfonamides; Z88.8 Allergy status to other drugs, medicaments and biological substances; Z90.49 Acquired absence of other specified parts of digestive tract; Z90.710 Acquired absence of both cervix and uterus
CPT/HCPCS: 01112; 36415; 85025; J2704; J7121

== ENCOUNTER 2024-10-09 09:14 | Emergency (ER) | payer MEDICARE, OTHER ==
[~2024-10-09] VITALS: Ht 154.9 cm; Wt 75.0 kg
[~2024-10-09 09:14] MED LIST changes: -IBLOOD GLUCOSE TEST STRIP 1 EA TEST VI PRN; -LACTATED RINGER'S 1,000 ML IV SCH; -LIDOCAINE HCL 1% 5 ML SDV INJ ONE; -MIDAZOLAM HCL 5 MG/5 ML VIAL IV PRN; -fentaNYL citrate 100 MCG/2 ML VIAL IV PRN
[2024-10-09 09:26] LABS: BASOPHILS 1.1 % (0.1-1.2); EOSINOPHILS 2.6 % (0.7-5.8); LYMPHOCYTES 20.8 % (19.3-51.7); MCH 26.9 PG (25.6-32.2); MCHC 31.9 g/dL (32.2-35.5); MCV 84.2 fL (79.4-94.8); MONOCYTES 11.3 % (4.7-12.5); NEUTROPHILS 63.6 % (34.0-71.1); RBC 3.35 M/uL (3.93-5.22)
[2024-10-09] MEDS ORDERED: LEVOTHYROXINE75 MCG PO (09:35)
[2024-10-09] MEDS ORDERED: SOLIFENACIN SUC10 MG PO (09:35)
[2024-10-09] MEDS ORDERED: CALCIUM ANTACI200 MG PO (09:35)
[2024-10-09] MEDS ORDERED: CHEST CONGESTI473 ML PO (09:35)
[2024-10-09] MEDS ORDERED: LANTUS SOL100 UNIT/1 SUB-Q (09:36)
[2024-10-09] MEDS ORDERED: BISMUTH SUBSAL PO (09:36)
[2024-10-09] MEDS ORDERED: GABAPENTIN300 MG PO (09:36)
[2024-10-09 09:46] LABS: ALT (SGPT) 22.0 U/L (14-59); AST (SGOT) 23.0 U/L (15-37); GLOMERULAR FILTRATION RATE,EST 83.0 mL/min (>60); PROTEIN, TOTAL 7.7 g/dL (6.4-8.2); UREA NITROGEN 11.0 mg/dL (7-18)
[2024-10-09 10:49] VITALS: BP 110/47
--- NOTE | 2024-10-10 12:58 | EKG ---
[facility] [address] [facility] [place] [address] Signed Normal sinus rhythm Cannot rule out Inferior infarct , age undetermined Abnormal ECG When compared with ECG of 13-SEP-2023 17:21, No significant change was found Confirmed by Aniya Rosas DO ([id number]) on 10/10/2024 12:58:16 PM Electronically Signed By: ANIYA ROSAS DO 10/10/24 1258 PATIENT NAME: HUNTER ZARAGOZA Electrocardiogram DATE OF : 52 PHYSICIAN: ANIYA ROSAS DO REPORT #: [id number] REPORT IS CONFIDENTIAL AND NOT TO BE RELEASED WITHOUT AUTHORIZATION
== END 2024-10-09 10:51 | disposition home or self-care (01) ==
LOC: ED 09:14
PROVIDERS: Emergency Medicine
DX: R07.89 Other chest pain (principal); E11.9 Type 2 diabetes mellitus without complications; F31.9 Bipolar disorder, unspecified; Z88.5 Allergy status to narcotic agent; Z88.2 Allergy status to sulfonamides; Z88.8 Allergy status to other drugs, medicaments and biological substances; Z79.4 Long term (current) use of insulin; Z79.84 Long term (current) use of oral hypoglycemic drugs; Z79.899 Other long term (current) drug therapy; Z79.890 Hormone replacement therapy
CPT/HCPCS: 36415; 71045; 80053; 83735; 84484; 85025; 93005; 93010; 99285-25

== ENCOUNTER 2024-10-26 06:48 | Day surgery (SDC) | payer MEDICARE, OTHER ==
[2024-10-23 13:07] VITALS: BP 145/61
[2024-10-23 13:47] VITALS: BP 145/61
[~2024-10-26] VITALS: Ht 152.4 cm; Wt 71.3 kg
[~2024-10-26 06:48] MED LIST changes: +ACETAMINOPHEN500 MG PO; +BISMUTH SUBSAL PO; +BUPIVACAINE HCL 0.25% 50 ML MDV ONE; +CALCIUM ANTACI200 MG PO; +CHEST CONGESTI473 ML PO; +GABAPENTIN300 MG PO; +LACTATED RINGER'S 1,000 ML IV SCH; +LANTUS SOL100 UNIT/1 SUB-Q; +LEVOTHYROXINE75 MCG PO; +LIDOCAINE 1% W/ EPI 1:200,000 30 ML SDV ONE; +SOLIFENACIN SUC10 MG PO; +THERA-D50 MCG PO
[2024-10-26] MEDS ORDERED: CEFAZOLIN SODIUM 2 GM in SODIUM CHLORIDE 0.9% 100 ML IV SCH (07:00)
[2024-10-26] MEDS ORDERED: LIDOCAINE HCL 1% 5 ML SDV INJ ONE (07:00)
[2024-10-26] MEDS ORDERED: IBLOOD GLUCOSE TEST STRIP 1 EA TEST VI PRN (07:00)
[2024-10-26 07:36] VITALS: BP 123/61
[2024-10-26] MEDS ORDERED: HYDROmorphone HCL 1 MG/ML SYR IV PRN (08:00)
[2024-10-26] MEDS ORDERED: TRAMADOL HCL 50 MG TAB PO PRN (08:00)
[2024-10-26] MEDS ORDERED: OXYCODONE/APAP 5/325 TAB PO PRN (08:00)
[2024-10-26] MEDS ORDERED: LIDOCAINE HCL 2% 5 ML SDV ONE (10:06)
[2024-10-26] MEDS ORDERED: fentaNYL citrate 100 MCG/2 ML VIAL ONE (10:37)
--- NOTE | 2024-10-26 12:34 | NUR ---
10/26/24 1234 Kennedi Samson 1228: PT ARRIVES TO PACU REACTIVE TO TACTILE STIMULUS. REPORT RECEIVED FROM DIET THERAPIST, DR. CRANE, AND PRISONER CLASSIFICATION INTERVIEWER.
[2024-10-26 13:08] VITALS: BP 130/66
--- NOTE | 2024-10-26 13:12 | NUR ---
PT ARRIVES FROM PACU VIA STRETCHER. PT IS A&O AND ASKING QUESTIONS APPROPRIATELY. PT REPORTS NO PAIN OR NAUSEA. SURGICAL SITES VISUALIZED W/TAD MENDOZA AND REPORT RECEIVED. PT TOLERATING ICE CHIPS W/OUT DIFFICULTY SWALLOWING. PT ON RA W/O2 >90%, RESPIRATIONS EVEN AND UNLABORED. PT REPORTS NO FURTHER NEEDS OR QUESTIONS AT THIS TIME. CALL LIGHT WITHIN REACH.
--- NOTE | 2024-10-26 14:00 | NUR ---
1400-PT UP TO RESTROOM. PT ABLE TO VOID.
[2024-10-26 14:20] VITALS: BP 117/61
--- NOTE | 2024-10-26 14:24 | NUR ---
PT SITTING UP IN BED. PT IS DRESSED. RESP EVEN AND UNLABORED. PT STATES LOWER BACK IS A LITTLE PAINFUL BUT TOLERABLE AT THIS TIME. PT EATING LUNCH. NO OTHER NEEDS AT THIS TIME. CALL LIGHT WITHIN REACH.
--- NOTE | 2024-10-26 16:06 | NUR ---
1500-WENT OVER DISHCARGE INSTRUCTIONS. WENT OVER POSTOP MEDICATIONS. ALL QUESTIONS ANSWERED. 1517-RIDE PROVIDED TO FRONT OF HOSPITAL WHERE RIDE WAS WAITING.
== END 2024-10-26 15:17 | disposition home or self-care (01) ==
LOC: DS 06:48
PROVIDERS: ATTEND Urology
PROC: 01HY3MZ Insertion of Neurostimulator Lead into Peripheral Nerve, Percutaneous Approach (ICD-10-PCS; principal; 2024-10-26 08:50)
DX: N32.81 Overactive bladder (principal); N39.46 Mixed incontinence; R15.9 Full incontinence of feces; I10 Essential (primary) hypertension; F25.9 Schizoaffective disorder, unspecified; Z87.891 Personal history of nicotine dependence; Z88.5 Allergy status to narcotic agent; Z88.8 Allergy status to other drugs, medicaments and biological substances; Z79.899 Other long term (current) drug therapy; Z90.49 Acquired absence of other specified parts of digestive tract
CPT/HCPCS: 00300; 76000; C1778; C1889; C1897; J0688; J2003; J2405; J2704; J3010; J7121

== ENCOUNTER 2024-11-09 07:14 | Day surgery (SDC) | payer MEDICARE, OTHER ==
[~2024-11-09] VITALS: Ht 152.4 cm; Wt 78.1 kg
[~2024-11-09 07:14] MED LIST changes: +CEFAZOLIN SODIUM 2 GM VIAL IV SCH; +CEFAZOLIN SODIUM 2 GM in SODIUM CHLORIDE 0.9% 100 ML IV SCH; +IBLOOD GLUCOSE TEST STRIP 1 EA TEST VI PRN; +LIDOCAINE HCL 1% 5 ML SDV INJ ONE
[2024-11-09 08:07] VITALS: BP 119/60
[2024-11-09] MEDS ORDERED: TRAMADOL HCL 50 MG TAB PO PRN (08:45)
--- NOTE | 2024-11-09 08:51 | NUR ---
MEENU SISTER ACCOMPANYING AND DOES SOME ANSWERS.
[2024-11-09] MEDS ORDERED: LIDOCAINE HCL 2% 5 ML SDV ONE (08:54)
[2024-11-09] MEDS ORDERED: fentaNYL citrate 100 MCG/2 ML VIAL ONE (09:01)
--- NOTE | 2024-11-09 10:12 | NUR ---
11/09/24 1012 Kennedi Samson 1000: PT ARRIVES TO PACU DROWSY, BUT EASILY AROUSABLE. REPORT RECEIVED FROM BARREL CLEANER AND ASSOCIATE PROFESSOR PLANT PATHOLOGY.
[2024-11-09 10:46] VITALS: BP 108/58
== END 2024-11-09 11:13 | disposition home or self-care (01) ==
LOC: DS 07:14
PROVIDERS: ATTEND Urology
PROC: 0JH70MZ Insertion of Stimulator Generator into Back Subcutaneous Tissue and Fascia, Open Approach (ICD-10-PCS; principal; 2024-11-09 08:50)
DX: N32.81 Overactive bladder (principal); N39.46 Mixed incontinence; E78.5 Hyperlipidemia, unspecified; F25.9 Schizoaffective disorder, unspecified; Z79.84 Long term (current) use of oral hypoglycemic drugs; Z79.899 Other long term (current) drug therapy; Z87.891 Personal history of nicotine dependence; Z88.5 Allergy status to narcotic agent; Z88.2 Allergy status to sulfonamides; Z88.8 Allergy status to other drugs, medicaments and biological substances
CPT/HCPCS: 00300; C1767; C1787; J0688; J2003; J2405; J2704; J3010; J7121

== ENCOUNTER 2024-11-14 11:43 | Emergency (ER) | payer MEDICARE, OTHER ==
[~2024-11-14] VITALS: Ht 152.4 cm; Wt 78.1 kg
[~2024-11-14 11:43] MED LIST changes: -BUPIVACAINE HCL 0.25% 50 ML MDV ONE; -CEFAZOLIN SODIUM 2 GM VIAL IV SCH; -CEFAZOLIN SODIUM 2 GM in SODIUM CHLORIDE 0.9% 100 ML IV SCH; -IBLOOD GLUCOSE TEST STRIP 1 EA TEST VI PRN; -LACTATED RINGER'S 1,000 ML IV SCH; -LIDOCAINE 1% W/ EPI 1:200,000 30 ML SDV ONE; -LIDOCAINE HCL 1% 5 ML SDV INJ ONE
[2024-11-14] MEDS ORDERED: CEPHALEXIN500 MG PO (13:24)
[2024-11-14] MEDS ORDERED: TRAMADOL HCL50 MG PO (13:24)
[2024-11-14] MEDS ORDERED: ONDANSETRON 4 MG TAB ODT SL ONE (14:00)
[2024-11-14 14:12] LABS: BLOOD/HGB, URINE NEGATIVE (Negative); KETONE, URINE NEGATIVE (Negative); LEUK ESTERASE, URINE TRACE (negative); NITRITE, URINE NEGATIVE (negative)
[2024-11-14 14:21] LABS: CORONAVIRUS COVID-19 AG NEGATIVE (NEGATIVE)
[2024-11-14 14:30] LABS: BACTERIA, URINE NONE SEEN /hpf (negative); CASTS, URINE NONE SEEN \\lpf; CRYSTALS, URINE NONE SEEN (0-1+); EPITHELIAL CELLS, URINE SQUAMOUS 2+ /lpf (0-1+); REFLEX CULTURE, URINE No (No)
[2024-11-14] MEDS ORDERED: ONDANSETRON ODT4 MG PO (15:04)
[2024-11-14 15:11] VITALS: BP 124/64
== END 2024-11-14 15:55 | disposition home or self-care (01) ==
LOC: ED 11:43
PROVIDERS: Emergency Medicine
DX: R11.0 Nausea (principal); E11.9 Type 2 diabetes mellitus without complications; Z96.82 Presence of neurostimulator; Z87.891 Personal history of nicotine dependence; Z88.5 Allergy status to narcotic agent; Z88.8 Allergy status to other drugs, medicaments and biological substances; Z88.0 Allergy status to penicillin; Z79.84 Long term (current) use of oral hypoglycemic drugs; Z79.4 Long term (current) use of insulin; Z79.890 Hormone replacement therapy; Z79.899 Other long term (current) drug therapy
CPT/HCPCS: 36415; 81001; 99284; A9270

== ENCOUNTER 2024-11-30 11:08 | Emergency (ER) | payer MEDICARE, OTHER ==
[~2024-11-30] VITALS: Ht 152.4 cm; Wt 75.5 kg
[~2024-11-30 11:08] MED LIST changes: +CEPHALEXIN500 MG PO; +ONDANSETRON ODT4 MG PO; +TRAMADOL HCL50 MG PO
[2024-11-30] MEDS ORDERED: MIRABEGRON ER50 MG PO (11:22)
[2024-11-30 15:30] VITALS: BP 111/54
== END 2024-11-30 16:01 | disposition home or self-care (01) ==
LOC: ED 11:08
DX: S40.012A Contusion of left shoulder, initial encounter (principal); E11.9 Type 2 diabetes mellitus without complications; X58.XXXA Exposure to other specified factors, initial encounter; Z79.4 Long term (current) use of insulin; Z79.899 Other long term (current) drug therapy; Z88.5 Allergy status to narcotic agent; Z88.2 Allergy status to sulfonamides; Z88.1 Allergy status to other antibiotic agents; Z88.8 Allergy status to other drugs, medicaments and biological substances; Z87.891 Personal history of nicotine dependence
CPT/HCPCS: 73030; 99283

== ENCOUNTER 2024-12-14 10:45 | Emergency (ER) | payer MEDICARE, OTHER ==
[~2024-12-14] VITALS: Ht 152.4 cm; Wt 71.0 kg
[~2024-12-14 10:45] MED LIST changes: +MIRABEGRON ER50 MG PO
[2024-12-14] MEDS ORDERED: DOXYCYCLINE HY100 MG PO (12:21)
[2024-12-14] MEDS ORDERED: VENTOLIN HFA18 GM INH (12:21)
[2024-12-14] MEDS ORDERED: DOXYCYCLINE HYCLATE 100 MG CAP PO ONE (12:30)
[2024-12-14 12:42] VITALS: BP 137/65
== END 2024-12-14 12:35 | disposition home or self-care (01) ==
LOC: ED 10:45
DX: R05.9 Cough, unspecified (principal); E11.9 Type 2 diabetes mellitus without complications; Z87.891 Personal history of nicotine dependence; Z88.5 Allergy status to narcotic agent; Z88.2 Allergy status to sulfonamides
CPT/HCPCS: 71045; 99283-25

== ENCOUNTER 2025-01-25 08:06 | Inpatient (IN) | payer MEDICARE, OTHER ==
[~2025-01-25] VITALS: Ht 152.4 cm; Wt 70.3 kg
[~2025-01-25 08:06] MED LIST changes: +DOXYCYCLINE HY100 MG PO
[2025-01-25 08:20] LABS: BASOPHILS 0.4 % (0.1-1.2); EOSINOPHILS 1.8 % (0.7-5.8); LYMPHOCYTES 10.1 % (19.3-51.7); MCH 23.5 PG (25.6-32.2); MCHC 30.2 g/dL (32.2-35.5); MCV 77.8 fL (79.4-94.8); MONOCYTES 9.9 % (4.7-12.5); NEUTROPHILS 77.4 % (34.0-71.1); RBC 3.11 M/uL (3.93-5.22)
[2025-01-25 08:51] LABS: ALCOHOL, MEDICAL <3 mg/dL (<3); ALT (SGPT) 19 U/L (14-59); AST (SGOT) 18 U/L (15-37); GLOMERULAR FILTRATION RATE,EST 77 mL/min (>60); PROTEIN, TOTAL 7.7 g/dL (6.4-8.2); UREA NITROGEN 9 mg/dL (7-18)
[2025-01-25 09:13] LABS: ABO A; ANTIBODY SCREEN NEGATIVE; RH POSITIVE
[2025-01-25 09:42] LABS: BLOOD/HGB, URINE SMALL (Negative); KETONE, URINE NEGATIVE (Negative); LEUK ESTERASE, URINE MODERATE (negative); NITRITE, URINE POSITIVE (negative)
[2025-01-25 10:04] LABS: BACTERIA, URINE 4+ /hpf (negative); CASTS, URINE NONE SEEN \\lpf; CRYSTALS, URINE NONE SEEN (0-1+); EPITHELIAL CELLS, URINE 0 /lpf (0-1+); REFLEX CULTURE, URINE Yes (No)
[2025-01-25 10:12] LABS: AMPHETAMINES, URINE NEGATIVE (NEGATIVE); BARBITURATES, URINE NEGATIVE (NEGATIVE); BENZODIAZEPINE, URINE NEGATIVE (NEGATIVE); CANNABINOID, URINE NEGATIVE (NEGATIVE); COCAINE, URINE NEGATIVE (NEGATIVE); ECSTASY, URINE NEGATIVE (NEGATIVE); FENTANYL, URINE NEGATIVE (NEGATIVE); METHADONE, URINE NEGATIVE (NEGATIVE); OPIATES, URINE NEGATIVE (NEGATIVE); OXYCODONE, URINE NEGATIVE (NEGATIVE); PHENCYCLIDINE, URINE NEGATIVE (NEGATIVE)
[2025-01-25 10:55] LABS: IS CROSSMATCH COMPATIBLE
[2025-01-25 11:21] LABS: ABO A; RH POSITIVE
[2025-01-25] MEDS ORDERED: IBLOOD GLUCOSE TEST STRIP 1 EA TEST XX PRN (12:15)
[2025-01-25] MEDS ORDERED: GLUCAGON,HUMAN RECOMBINANT 1 MG/ML VIAL SUB-Q PRN (12:15)
[2025-01-25] MEDS ORDERED: DEXTROSE 5% 1,000 ML IV PRN (12:15)
[2025-01-25] MEDS ORDERED: DEXTROSE 50% 50 ML SYR IV PRN ×2 (12:15)
[2025-01-25] MEDS ORDERED: LACTATED RINGER'S 1,000 ML IV SCH (12:15)
[2025-01-25] MEDS ORDERED: OFLOXACIN5 ML OTIC (13:05)
[2025-01-25 13:40] VITALS: BP 122/59
--- NOTE | 2025-01-25 13:40 | NUR ---
PT REPORT RECIEVED FROM KELLY CLARK IN THE ED, PT BELONGING BAG WITH PT, PANTS, SOCKS, SHIRT, AND COAT, IN BAG. GLASSES AND PT PHONE WITH PT AND PT IN LOCK BOX UNTIL PT REQUESTS THEM. PT BROUGHT TO ROOM ON FLOOR VIA STRETCHER AND VITALS SIGNS STABLE, PT EDUCATED TROMMEL TENDER LIGHT AND HAS BLOOD PRODUCTS BEING ADMIN AT THIS TIME. PT TOLERATING WELL. PT CALL LIGHT IN REACH.
--- NOTE | 2025-01-25 13:40 | NUR ---
UR CLINICAL REVIEW: 2 MN FOR VERSALUS-PER CIGARETTE PACKING MACHINE OPERATOR MEETS INPT FOR AMS WITH NEED FOR SERIAL LABS, IVF, IV ABX AND MONITORING MEDICARE INPT 01/25/25 @ 1221 ORDER MATCHES REG NO AUTH REQUIRED PER MEDICARE GUIDELINES DISCHARGE PENDING FURTHER CASE MANAGEMENT EVALUATION 01/26/25 DC REVIEW
[2025-01-25] MEDS ORDERED: Insulin Regular, Human 100 UNIT/ML ML SUB-Q SCH ×2 (14:00→21:00)
[2025-01-25] MEDS ORDERED: IBLOOD GLUCOSE TEST STRIP 1 EA TEST VI SCH ×2 (14:00→21:00)
[2025-01-25] MEDS ORDERED: SOLIFENACIN SUC10 MG PO (14:09)
--- NOTE | 2025-01-25 14:35 | NUR ---
medications reconciled using pharmacy records and facilty MARS
--- NOTE | 2025-01-25 14:50 | NUR ---
PT BLOOD ADMIN COMPLETED. PT HAS NO CURRENT COMPLAINTS AND VITALS STABLE, PT HAS CALL LIGHT IN REACH AT THIS TIME.
--- NOTE | 2025-01-25 15:44 | NUR ---
PATIENT ALERT IN BED. NOT FULLY ORIENTED. PATIENT LIVES AT [facility]. SHE HAS A WALKER, NO OTHER DME. PATIENT DOES NOT DRIVE. STATES SHE USES A [facility] FOR TRANSPORT. MEENU, HER SISTER, IS HER EMERGENCY CONTACT. PATIENT BELIEVES SHE HAS [employer] MED[employer] AND HOME HEALTH. CALLED [facility], THEY DO NOT HAVE PATIENT ON SERVICES. PATIENT IS PLANNING TO RETURN TO [facility] WHEN MEDICALLY READY.
[2025-01-25 16:33] VITALS: BP 122/59
--- NOTE | 2025-01-25 17:22 | NUR ---
PATIENT CALLED TO USE THE BATHROOM, 2 PERSON ASSIST WHEN GETTING UP, OVER ALL PATIENT IS A ONE PERSON ASSIST WITH USING HER PERSONAL WALKER THATS PLACED WITHIN THE ROOM. PUREWICK HAS BEEN PLACED ON PATIENT. CALL LIGHT HAS BEEN PLACED WITHIN REACH. NO REQUEST FROM PATIENT AT THIS TIME
--- NOTE | 2025-01-25 17:58 | NUR ---
PT SITTING UP IN BED WITH EYES CLOSED CHEST RISE EQUAL BILAT AT THIS TIME, PT HAS CALL LIGHT IN REACH IF NEEDED.
[2025-01-25 18:06] VITALS: BP 129/57
[2025-01-25 18:12] VITALS: BP 129/57
--- NOTE | 2025-01-25 18:14 | NUR ---
PT LAYING IN BED WITH EYES CLOSED CHEST RISE EQUAL BILAT AT THIS TIME AND HAS CALL LIGHT IN REACH IF NEEDED.
--- NOTE | 2025-01-25 18:28 | NUR ---
HOURLY ROUNDING PATIENT LAYING IN BED, APPEARS SLEEPY. CALL LIGHT HAS BEEN PLACED WITHIN REACH
--- NOTE | 2025-01-25 19:20 | NUR ---
RECEIVED REPORT FROM KELLY TIRADO. PT LAYING IN BED ON PHONE, WHITEBOARD UPDATED. REQUESTS CRACKER, GIVEN. NO PAIN REPORTED, PT STATES SHE HAS TO PEE, REMINDED SHE HAS A PURWICK IN PLACE. PT UNDERSTANDS. ALL PERSONAL BELONGINGS AND CALL LIGHT WITHIN REACH.
[2025-01-25 20:12] VITALS: BP 134/60
--- NOTE | 2025-01-25 20:30 | NUR ---
VS TAKEN, PURWICK CANISTER EMPTIED, I&OS CHARTED. PTS ASSESSMENT COMPLETE. PT REPORTS NO PAIN AT THIS TIME, BS TAKEN, SCHEDULED INSULIN GIVEN. NO OTHER NEEDS REPORTED AT THIS TIME, CALL LIGHT WITHIN REACH, PERSONAL BELONGINGS WITHIN REACH, BED ALARM ON.
--- NOTE | 2025-01-25 21:48 | NUR ---
PT LAYING IN BED, EYES CLOSED, UNLABORED BREATHING. IV FLUIDS INFUSING PER ORDER, PERSONAL ITEMS AND CALL LIGTH WITHIN REACH. BED ALARM ON.
[2025-01-25 23:10] VITALS: BP 134/60
--- NOTE | 2025-01-25 23:29 | NUR ---
PTS IV PUMP ALARMING, IV ASSESSED, NEW BAG OF FLUIDS INFUSING. PTS PURWICK CHANGED, DIAPER CHAGED, SKIN CLEANSED. PT REPORTS NO OTHER NEEDS AT THIS TIME, TV ON, LIGHTS OFF, CALL LIGHT WITHIN REACH. PERSONAL BELONGINGS WITHIN REACH.
[2025-01-26 01:02] VITALS: BP 124/44
--- NOTE | 2025-01-26 01:04 | NUR ---
VS TAKEN, FRESH WATER GIVEN, I&OS CHARTED. PT REPORTS NO OTHER NEEDS AT THIS TIME, CALL LIGHT WITHIN REACH.
[2025-01-26 02:03] VITALS: BP 124/44
--- NOTE | 2025-01-26 03:05 | NUR ---
PT REPORTS SHE IS WET, PT ASSISTED TO AMBULATE TO THE BATHROOM WITH 4WW. LINENS CHANGED, BRIEF CHANGED, SKIN CLEANSED, JEM CARE COMPLETED. NEW PURWICK IN PLACE, PT BACK TO BED WITH IV FLUIDS RUNNING PER ORDER. PT GIVEN HOT TEA, NO OTHER NEEDS, CALL LIGHT WITHIN REACH.
[2025-01-26 05:27] LABS: BASOPHILS 0.5 % (0.1-1.2); EOSINOPHILS 3.3 % (0.7-5.8); LYMPHOCYTES 19.3 % (19.3-51.7); MCH 24.6 PG (25.6-32.2); MCHC 31.4 g/dL (32.2-35.5); MCV 78.4 fL (79.4-94.8); MONOCYTES 11.0 % (4.7-12.5); NEUTROPHILS 65.7 % (34.0-71.1); RBC 3.33 M/uL (3.93-5.22)
[2025-01-26 05:32] VITALS: BP 128/55
[2025-01-26 05:34] VITALS: BP 128/55
--- NOTE | 2025-01-26 05:34 | NUR ---
VS TAKEN, PURWICK CANISTER EMPTIED. I&OS CHARTED. PT REPORTS NO NEEDS AT THIS TIME, CALL LIGHT WITHIN REACH.
[2025-01-26 05:46] LABS: GLOMERULAR FILTRATION RATE,EST 85.0 mL/min (>60); UREA NITROGEN 8.0 mg/dL (7-18)
--- NOTE | 2025-01-26 07:21 | NUR ---
REPORT RECEIVED FROM DON MENDOZA. PATIENT IN BED. CALL LIGHT AND PERSONAL BELONGINGS IN REACH.
--- NOTE | 2025-01-26 07:39 | NUR ---
HOURLY ROUNDING UODATED BOARD, PLACE FALL MATTS FOR FALL RISK PATIENT BLOOD GLUCOSE CHECK COMPLETE. CALL LIGHT HAS BEEN PLACED WIHTIN REACH NO REQUEST FROM PATIENT AT THIS TIME
--- NOTE | 2025-01-26 08:33 | NUR ---
PATIENT IN CHAIR. CALL LIGHT IN REACH
[2025-01-26] MEDS ORDERED: MAGNESIUM SULFATE 2 GM/50 ML BAG IV ONE (09:00)
--- NOTE | 2025-01-26 09:00 | NUR ---
CALLED [facility] AND SPOKE WITH JAZZMINE. INFORMED THEM PATIENT WILL BE DISCHARGING FROM HOSPITAL TODAY. PATIENT NOTIFIED, AGREES TO TRANSPORT BACK TO [facility] VIA [facility]. NO CM NEEDS.
[2025-01-26] MEDS ORDERED: AMOX TR-K CLV1 EACH PO (09:19)
[2025-01-26 09:31] VITALS: BP 133/47
--- NOTE | 2025-01-26 09:34 | NUR ---
HOURLY ROUNDIG VS COMPLETED AND CALL LIGHT HAS BEEN PLACED WITHIN THE REACH, NURSE AT BEDSIDE FIXING IV
--- NOTE | 2025-01-26 09:40 | NUR ---
CALLED CLINIC TO SCHEDULE APPOINTMENT, THEY WILL CONTACT PATIENT WITH FOLLOW-UP APPOINTMENT. DC ORDERS, H&P, DC SUMMARY FAXED TO [facility].
[2025-01-26 10:14] VITALS: BP 133/47
--- NOTE | 2025-01-26 10:49 | NUR ---
ASSISTED PATIENT TO RESTROOM AND BACK TO CHAIR. ASSISTED PATIENT TO DRESS IN OWN CLOTHES. VITAL SIGNS COMPLETE. IV DC'D WNL, TIP INTACT. PERSONAL BELONGINGS INCLUDING WALKER, PHONE, CLOTHES, GLASSES, AND PHONE LIABILITY CLAIMS REPRESENTATIVE IN PATIENT POSESSION AND READY FOR DEPARTURE. RN ENT IN ROOM WITH PATIENT. CALL LIGHT IN REACH.
--- NOTE | 2025-01-26 11:00 | NUR ---
CALLED [facility] AND SPOKE WITH RN DON. GAVE PHONE REPORT ON PATIENT AND ANSWERED ALL QUESTIONS. SHE VERBALIZED UNDERSTANDING AND DENIES QUESTIONS OR CONCERNS AT THIS TIME. PATIENT OFF UNIT WITH BUS PERSON VIA WHEELCHAIR TO CARE [facility]IDE [facility].
[2025-01-26] MEDS ORDERED: PHARMACY RENAL DOSE ADJUSTMENT 1 DOSE MISC PO SCH (12:00)
== END 2025-01-26 10:50 | DRG 690 ==
LOC: ED 08:06 → MS 12:28
PROVIDERS: Emergency Medicine; ADMIT Internal Medicine; ATTEND Internal Medicine
PROC: 30233N1 Transfusion of Nonautologous Red Blood Cells into Peripheral Vein, Percutaneous Approach (ICD-10-PCS; principal; 2025-01-25)
PROC: 3E03329 Introduction of Other Anti-infective into Peripheral Vein, Percutaneous Approach (ICD-10-PCS; 2025-01-25)
DX: N39.0 Urinary tract infection, site not specified (principal); E87.1 Hypo-osmolality and hyponatremia; F03.94 Unspecified dementia, unspecified severity, with anxiety; F25.9 Schizoaffective disorder, unspecified; D69.6 Thrombocytopenia, unspecified; R29.6 Repeated falls; D64.9 Anemia, unspecified; F31.9 Bipolar disorder, unspecified; I48.91 Unspecified atrial fibrillation; E11.65 Type 2 diabetes mellitus with hyperglycemia; K74.60 Unspecified cirrhosis of liver; Z87.891 Personal history of nicotine dependence; Z87.19 Personal history of other diseases of the digestive system; Z90.49 Acquired absence of other specified parts of digestive tract; Z98.890 Other specified postprocedural states; Z90.710 Acquired absence of both cervix and uterus; Z88.8 Allergy status to other drugs, medicaments and biological substances; Z88.5 Allergy status to narcotic agent; Z88.2 Allergy status to sulfonamides; Z79.51 Long term (current) use of inhaled steroids; Z79.899 Other long term (current) drug therapy; Z79.4 Long term (current) use of insulin; Z79.890 Hormone replacement therapy; Z79.2 Long term (current) use of antibiotics
CPT/HCPCS: 36415; 70450; 71045; 72170; 80048; 80053; 80307; 81001; 83036; 83735; 85025; 86850; 86900; 86901; 86922; G0480; J0696; J1815; J3475; J7121